=== PATIENT | male | born 1970 | race Caucasian/White ===

== ENCOUNTER 2018-11-22 21:54 | Emergency (ER) | payer OTHER ==
[2018-11-22 22:03] VITALS: BP 136/76; PULSE 65; RESP 18; TEMP 98.1
[2018-11-22] MEDS ORDERED: SULFAMETH-TMP DS STARTER PACK 2 TAB BTL PO STA (23:26)
[2018-11-22] MEDS ORDERED: ACET/COD 300 MG/30 MG STARTER PACK 6 TAB BTL PO STA (23:26)
--- NOTE | 2018-11-22 23:26 | ED ---
General Adult HPI - General Source: patient Mode of arrival: ambulatory Limitations: no limitations <Tamy Christine - Last Filed: 11/23/18 04:04> <Tyshawn Paul - Last Filed: 11/23/18 08:33> - General Chief complaint: ENT Stated complaint: Swelling behind ear Time Seen by Provider: 11/22/18 22:10 - History of Present Illness Initial comments: 48-year-old male patient presents to the emergency department today for evaluation of swelling and pain to the left lateral neck below the ear. Patient states that this started 3-4 days ago. He thought it might be a blocked salivary gland so he did start eating lemon drops and applying warm compresses to the area. Patient states that the area has grown in size and has become more painful so he presented here for further evaluation. He states that he does have a chronically enlarged lymph node on the left side. He denies any drainage or pus or fluid from the area. Denies any ear pain. He denies any fevers or chills with this. States he is able to swallow without difficulty and feels no swelling to his throat or mouth. Patient denies any recent rash, shortness breath, chest pain, abdominal pain, nausea, vomiting, diarrhea, constipation, back pain, numbness, tingling, dizziness, weakness, hematuria, dysuria, urinary urgency, urinary frequency, headache, visual changes , or any other complaints. (Tamy Christine) - Related Data Home Medications Medication Instructions Recorded Confirmed Albuterol Inhaler [Ventolin Hfa 1 - 2 puff INHALATION RT-Q6H PRN 11/22/18 Inhaler] Atorvastatin Calcium [Lipitor] 20 mg PO HS 11/22/18 11/22/18 DULoxetine HCL [Cymbalta] 60 mg PO DAILY 11/22/18 11/22/18 Ibuprofen [Motrin] 600 mg PO Q8HR PRN 11/22/18 11/22/18 L.acidoph,Paracasei, B.lactis 1 cap PO HS 11/22/18 11/22/18 [Probiotic] metFORMIN HCL 1,000 mg PO BID 11/22/18 11/22/18 Previous Rx's Medication Instructions Recorded Sulfamethoxazole/Trimethoprim 1 each PO BID #20 tablet 11/22/18 [Bactrim DS 800-160 mg] Allergies Allergy/AdvReac Type Severity Reaction Status Date / Time No Known Allergies Allergy Unverified 11/22/18 22:29 Review of Systems ROS Other: All systems not noted in ROS Statement are negative. <Tamy Christine - Last Filed: 11/23/18 04:04> ROS Other: All systems not noted in ROS Statement are negative. <RejiTyshawn benton - Last Filed: 11/23/18 08:33> ROS Statement: Those systems with pertinent positive or pertinent negative responses have been documented in the HPI. Past Medical History Past Medical History: Asthma, COPD, Diabetes Mellitus, Hyperlipidemia, Hypertension Additional Past Medical History / Comment(s): MONSTER History of Any Multi-Drug Resistant Organisms: None Reported Additional Past Surgical History / Comment(s): rectal abcess, fissure Past Psychological History: No Psychological Hx Reported Smoking Status: Current every day smoker Past Alcohol Use History: None Reported Past Drug Use History: None Reported <Tamy Christine - Last Filed: 11/23/18 04:04> General Exam Limitations: no limitations General appearance: alert, in no apparent distress, other (This is a well- developed, well-nourished adult male patient in no acute distress. Vital signs upon presentation are temperature 98.1F, pulse 65, respirations 18, blood pressure 136/76, pulse ox 98% on room air.) Eye exam: Present: normal appearance, PERRL, EOMI. Absent: scleral icterus, conjunctival injection, periorbital swelling ENT exam: Present: normal exam, normal oropharynx, mucous membranes moist Respiratory exam: Present: normal lung sounds bilaterally. Absent: respiratory distress, wheezes, rales, rhonchi, stridor Cardiovascular Exam: Present: regular rate, normal rhythm, normal heart sounds. Absent: systolic murmur, diastolic murmur, rubs, gallop, clicks GI/Abdominal exam: Present: soft, normal bowel sounds. Absent: distended, tenderness, guarding, rebound, rigid Neurological exam: Present: alert, oriented X3, CN II-XII intact Psychiatric exam: Present: normal affect, normal mood Skin exam: Present: warm, dry, intact, other (There is area of swelling and erythema noted posterior to the left angle of the mandible. Area measures 4cm x 2cm. No fluctuance. No evidence of drainable abscess. ). Absent: rash <EmmettTamy Wayne - Last Filed: 11/23/18 04:04> Vital Signs 11/22/18 21:56 Temperature 98.1 F Pulse Rate 65 Respiratory 18 Rate Blood Pressure 136/76 O2 Sat by Pulse 98 Oximetry Medical Decision Making <EmmettTamy Wayne - Last Filed: 11/23/18 04:04> <Tyshawn Paul - Last Filed: 11/23/18 08:33> - Medical Decision Making 48-year-old male patient presents to the emergency department today for evaluation of pain and swelling to the left side of the neck just below the ear. Physical examination did reveal a 3 cm x 2 cm area of swelling and erythema just posterior to the left angle of the mandible. No fluctuance or evidence of drainable abscess. Patient is afebrile. This is consistent with an infected sebaceous cyst. Patient did report have a chronically swollen lymph node to the area as well. Given chronic history of this lymph node being swollen we will discharge to follow-up with surgeon for further evaluation of the area and possible drainage. Patient will be started on Bactrim. We did discuss return parameters in detail. He verbalizes understanding and agrees with this plan. (Tamy Christine) I saw this patient in conjunction with the physician esl instructional assistant. I performed independent history and physical exam. Agree with case management. (Tyshawn Paul) Disposition Is patient prescribed a controlled substance at d/c from ED?: No Time of Disposition: 23:26 <Tamy Christine - Last Filed: 11/23/18 04:04> <Tyshawn Paul - Last Filed: 11/23/18 08:33> Clinical Impression: Infected sebaceous cyst Disposition: HOME SELF-CARE Condition: Good Instructions (If sedation given, give patient instructions): Abscess (ED) Additional Instructions: Continue to apply warm compresses over the area. Complete antibiotic prescription in full. Follow up with general surgery for further evaluation of the area. Return to the emergency department immediately for any new, worsening , or concerning symptoms. Prescriptions: Sulfamethoxazole/Trimethoprim [Bactrim DS 800-160 mg] 1 each PO BID #20 tablet Referrals: Mickey Darling MD [STAFF PHYSICIAN] - 1-2 days
== END 2018-11-22 23:40 | disposition home or self-care (01) ==
LOC: EC 21:54
DX: L72.3 Sebaceous cyst (principal); J44.9 Chronic obstructive pulmonary disease, unspecified; E11.9 Type 2 diabetes mellitus without complications; E78.5 Hyperlipidemia, unspecified; I10 Essential (primary) hypertension; F17.200 Nicotine dependence, unspecified, uncomplicated; Z79.899 Other long term (current) drug therapy; Z79.84 Long term (current) use of oral hypoglycemic drugs
CPT/HCPCS: 99283

== ENCOUNTER 2019-01-07 22:26 | Emergency (ER) | payer OTHER ==
[2019-01-07 23:24] LABS: Basophils # (A) 0.1 k/uL (0-0.2); Basophils % (A) 1 %; Eosinophils # (A) 0.3 k/uL (0-0.7); Eosinophils % (A) 3 %; HCT 45.8 % (39.0-53.0); HGB 15.1 gm/dL (13.0-17.5); Lymphocytes % (A) 20 %; MCH 29.3 pg (25.0-35.0); MCV 88.7 fL (80.0-100.0); Mean Platelet Volume 8.5; Monocytes # (A) 0.7 k/uL (0-1.0); Monocytes % (A) 7 %; Neutrophils # (A) 6.8 k/uL (1.3-7.7); Neutrophils % (A) 67 %; Platelet Count 179 k/uL (150-450); RBC 5.16 m/uL (4.30-5.90); RDW 14.4 % (11.5-15.5); WBC 10.1 k/uL (3.8-10.6)
[2019-01-07 23:35] LABS: ALT 63 U/L (21-72); AST 40 U/L (17-59); Albumin 3.8 g/dL (3.5-5.0); Alkaline Phosphatase 97 U/L (38-126); Anion Gap 6 mmol/L; Blood Urea Nitrogen 6 mg/dL (9-20); Calcium 9.4 mg/dL (8.4-10.2); Carbon Dioxide 27 mmol/L (22-30); Chloride 106 mmol/L (98-107); Glucose 158 mg/dL (74-99); Sodium 139 mmol/L (137-145); Total Bilirubin 0.7 mg/dL (0.2-1.3); Total Protein 6.8 g/dL (6.3-8.2)
--- NOTE | 2019-01-08 01:01 | CT ---
EXAM: CT Neck With Intravenous Contrast CLINICAL HISTORY: right facial swelling TECHNIQUE: Axial computed tomography images of the neck with intravenous contrast. CTDI is 16.4 mGy and DLP is 543 mGy-cm. This CT exam was performed using one or more of the following dose reduction techniques: automated exposure control, adjustment of the mA and/or kV according to patient size, and/or use of iterative reconstruction technique. COMPARISON: No relevant prior studies available. FINDINGS: Oropharynx: Unremarkable. Mild prominence of the tonsils without evidence of peritonsillar abscess with surrounding inflammatory changes Hypopharynx: Unremarkable. Larynx: Unremarkable. Normal epiglottis. Parotid gland: 2.9 x 2.7 x 2.5 cm enhancing nodule in the right parotid gland with poorly defined margins low attenuation centrally. There is a infiltrative pattern to the surrounding parotid gland there is additional smaller lesion noted measuring 11 mm inferiorly. There appear to be enlarged intraparotid lymph nodes as well. Inflammatory changes are noted along the superficial investing fascia as well as along the right side of the subcutaneous tissues. There is bilateral shotty cervical adenopathy There is an area of abnormal attenuation adjacent to the left parotid gland with an enlarged intraparotid lymph gland on the left measuring 1.6 cm in size. The findings are nonspecific. The differential diagnosis includes inflammatory process versus neoplasm. Clinical correlation is required Thyroid: Unremarkable. No enlarged or calcified nodules. Bones/joints: No acute fracture. Soft tissues: Unremarkable. Vasculature: No acute findings. Lymph nodes: Bilateral cervical adenopathy with supraclavicular lymph nodes measuring up 1.5 cm on the right Lung apices: Unremarkable as visualized. IMPRESSION: Abnormal mass in the right parotid gland with surrounding smaller lesions intra-parotid lymph nodes. Infiltrative pattern of the gland itself with some thickening of the fascial investing fascia there appears to be some inflammatory changes along the right side of the subcutaneous fat of the face as well. There is a abnormal area of attenuation which involves the subcutaneous fat adjacent to the parotid gland below the external auditory canal on the left. There is an enlarged parotid gland lymph node. The findings are nonspecific. Possibility of infectious or inflammatory process versus neoplasm cannot be adequately differentiated on this study.
--- NOTE | 2019-01-08 01:01 | ED ---
General Adult HPI - General Chief complaint: Skin/Abscess/Foreign Body Stated complaint: Swollen face on RT side Time Seen by Provider: 01/07/19 22:44 Source: patient, RN notes reviewed Mode of arrival: ambulatory Limitations: no limitations - History of Present Illness Initial comments: 48-year-old male presents to the emergency department for right-sided facial swelling 4 days. Patient states he has had pain in the right-sided facial area for about a week and for the past 4 days has had worsening right-sided facial swelling. Patient states he does have a history of a blocked salivary duct but has been using sour candies and has not had relief. Patient does admit to worsening pain after eating. Patient states he thought he had a blocked sa livary gland duct on the left side earlier this year that ended up being a sebaceous cyst. He denies fevers or chills. He denies any tooth pain. He denies any difficulty swallowing.Patient has no other complaints at this time including shortness of breath, chest pain, abdominal pain, nausea or vomiting, headache, or visual changes. - Related Data Home Medications Medication Instructions Recorded Confirmed Albuterol Inhaler [Ventolin Hfa 1 - 2 puff INHALATION RT-Q6H PRN 11/22/18 01/07/19 Inhaler] Atorvastatin Calcium [Lipitor] 20 mg PO HS 11/22/18 01/07/19 DULoxetine HCL [Cymbalta] 60 mg PO DAILY 11/22/18 01/07/19 Ibuprofen [Motrin] 600 mg PO Q8HR PRN 11/22/18 01/07/19 L.acidoph,Paracasei, B.lactis 1 cap PO HS 11/22/18 01/07/19 [Probiotic] metFORMIN HCL 1,000 mg PO BID 11/22/18 01/07/19 Aspirin 650 mg PO BID 01/07/19 01/07/19 Previous Rx's Medication Instructions Recorded Amoxicillin/Potassium Clav 1 tab PO Q12HR #20 tab 01/08/19 [Augmentin 875-125 Tablet] Allergies Allergy/AdvReac Type Severity Reaction Status Date / Time No Known Allergies Allergy Verified 01/07/19 23:01 Review of Systems ROS Statement: Those systems with pertinent positive or pertinent negative responses have been documented in the HPI. ROS Other: All systems not noted in ROS Statement are negative. Past Medical History Past Medical History: Asthma, COPD, Diabetes Mellitus, Hyperlipidemia, Hypertension Additional Past Medical History / Comment(s): MONSTER History of Any Multi-Drug Resistant Organisms: None Reported Additional Past Surgical History / Comment(s): rectal abcess, fissure Past Psychological History: No Psychological Hx Reported Smoking Status: Current every day smoker Past Alcohol Use History: None Reported Past Drug Use History: None Reported General Exam Limitations: no limitations General appearance: alert, in no apparent distress Head exam: Present: atraumatic, normocephalic, normal inspection Eye exam: Present: normal appearance, PERRL, EOMI. Absent: scleral icterus, conjunctival injection, periorbital swelling ENT exam: Present: normal oropharynx, TM's normal bilaterally, other (Patient has a centimeter by 8 cm area of edema noted to the right mandibular angle extending into the neck. This is non-erythematous, not warm to palpation. Does not feel fluctuant.) Neck exam: Present: normal inspection, full ROM, other (Patient does have a mass as described above in the ENT section. This is extending into the right submandibular area). Absent: tenderness, meningismus, lymphadenopathy Respiratory exam: Present: normal lung sounds bilaterally. Absent: respiratory distress, wheezes, rales, rhonchi, stridor Cardiovascular Exam: Present: regular rate, normal rhythm, normal heart sounds. Absent: systolic murmur, diastolic murmur, rubs, gallop, clicks Neurological exam: Present: alert, oriented X3, CN II-XII intact Psychiatric exam: Present: normal affect, normal mood Course Vital Signs 01/07/19 01/08/19 01/08/19 22:34 00:23 02:09 Temperature 99.3 F 99.5 F 98.8 F Pulse Rate 82 90 78 Respiratory 18 20 18 Rate Blood Pressure 143/86 152/71 133/73 O2 Sat by Pulse 94 L 97 97 Oximetry Medical Decision Making - Medical Decision Making CBC CMP unremarkable. Soft tissue neck CT does show an abnormal mass in the right parotid gland with surrounding smaller lesions some inflammatory changes likely. Findings are nonspecific. Possibility of infectious or inflammatory process versus neoplasm. Discussed these findings with patient. There are no areas of fluctuance. Patient was given Unasyn here and Augmentin for outpatient therapy. However did discuss close follow up with ENT due to possibility of neoplasm or worsening swelling. However, neoplasm unlikely as this just occurred in the past week. Patient is agreeable to this plan. PATIENT answered. He was given referral to ENT. He will return here feels worsening symptoms. - Lab Data Result diagrams: 01/07/19 23:11 01/07/19 23:11 Lab Results 01/07/19 01/07/19 Range/Units 23:11 23:11 WBC 10.1 (3.8-10.6) k/uL RBC 5.16 (4.30-5.90) m/uL Hgb 15.1 (13.0-17.5) gm/dL Hct 45.8 (39.0-53.0) % MCV 88.7 (80.0-100.0) fL MCH 29.3 (25.0-35.0) pg MCHC 33.0 (31.0-37.0) g/dL RDW 14.4 (11.5-15.5) % Plt Count 179 (150-450) k/uL Neutrophils % 67 % Lymphocytes % 20 % Monocytes % 7 % Eosinophils % 3 % Basophils % 1 % Neutrophils # 6.8 (1.3-7.7) k/uL Lymphocytes # 2.0 (1.0-4.8) k/uL Monocytes # 0.7 (0-1.0) k/uL Eosinophils # 0.3 (0-0.7) k/uL Basophils # 0.1 (0-0.2) k/uL Sodium 139 (137-145) mmol/L Potassium 4.0 (3.5-5.1) mmol/L Chloride 106 (98-107) mmol/L Carbon Dioxide 27 (22-30) mmol/L Anion Gap 6 mmol/L BUN 6 L (9-20) mg/dL Creatinine 0.64 L (0.66-1.25) mg/dL Est GFR (CKD-EPI)AfAm >90 (>60 ml/min/1.73 sqM) Est GFR (CKD-EPI)NonAf >90 (>60 ml/min/1.73 sqM) Glucose 158 H (74-99) mg/dL Calcium 9.4 (8.4-10.2) mg/dL Total Bilirubin 0.7 (0.2-1.3) mg/dL AST 40 (17-59) U/L ALT 63 (21-72) U/L Alkaline Phosphatase 97 (38-126) U/L Total Protein 6.8 (6.3-8.2) g/dL Albumin 3.8 (3.5-5.0) g/dL Disposition Clinical Impression: Parotitis, Facial swelling Disposition: HOME SELF-CARE Condition: Good Instructions (If sedation given, give patient instructions): Sialoadenitis (ED) Additional Instructions: Please take antibiotic as directed. Follow up with ENT in 1-2 days. If you have any worsening symptoms please return to the emergency department. Prescriptions: Amoxicillin/Potassium Clav [Augmentin 875-125 Tablet] 1 tab PO Q12HR #20 tab Is patient prescribed a controlled substance at d/c from ED?: No Referrals: Nonstaff,Physician [Primary Care Provider] - 1-2 days Rishabh Alejo DO [Doctor of Osteopathic Medicine] - 1-2 days Time of Disposition: 01:18
[2019-01-08] MEDS ORDERED: KETOROLAC 30 MG/ML 1 ML VIAL IVP STA (01:16)
[2019-01-08] MEDS ORDERED: AMPICILLIN-SULBACTAM 3 GM in SODIUM CHLORIDE 0.9% 100 ML IVPB STA (01:19)
[2019-01-08] MEDS ORDERED: AMOXIC-POT CLAV 875MG STARTER 2 EACH TABLET PO STA (01:21)
[2019-01-08] MEDS ORDERED: ACET/COD 300 MG/30 MG STARTER PACK 6 TAB BTL PO STA (01:22)
[2019-01-08 02:10] VITALS: BP 133/73; PULSE 78; RESP 18; TEMP 98.8
== END 2019-01-08 02:19 | disposition home or self-care (01) ==
LOC: EC 22:26
DX: K11.20 Sialoadenitis, unspecified (principal); J44.9 Chronic obstructive pulmonary disease, unspecified; E78.5 Hyperlipidemia, unspecified; I10 Essential (primary) hypertension; F17.200 Nicotine dependence, unspecified, uncomplicated; Z79.82 Long term (current) use of aspirin; Z79.84 Long term (current) use of oral hypoglycemic drugs; Z79.899 Other long term (current) drug therapy
CPT/HCPCS: 36415; 80053; 85025; 87040; 70491; 99284; 96365; 96375; J1885; J0295; Q9967

== ENCOUNTER → 2019-01-28 | Outpatient (CLI) | payer OTHER ==
[2019-01-28 12:21] LABS: Basophils # (A) 0.1 k/uL (0-0.2); Basophils % (A) 1 %; Eosinophils # (A) 0.3 k/uL (0-0.7); Eosinophils % (A) 4 %; HGB 14.6 gm/dL (13.0-17.5); Lymphocytes # (A) 2.2 k/uL (1.0-4.8); Lymphocytes % (A) 30 %; MCH 29.3 pg (25.0-35.0); MCHC 33.9 g/dL (31.0-37.0); MCV 86.4 fL (80.0-100.0); Mean Platelet Volume 7.2; Monocytes # (A) 0.6 k/uL (0-1.0); Monocytes % (A) 7 %; Neutrophils # (A) 4.2 k/uL (1.3-7.7); Neutrophils % (A) 56 %; Platelet Count 295 k/uL (150-450); RBC 4.97 m/uL (4.30-5.90); RDW 14.6 % (11.5-15.5); WBC 7.4 k/uL (3.8-10.6)
[2019-01-28 16:48] LABS: Albumin 4.3 g/dL (3.80-4.90); Albumin/Globulin Ratio 1.79 (1.60-3.17); Anion Gap 5.5 mmol/L (4.00-12.00); Calcium 9.7 mg/dL (8.7-10.3); Carbon Dioxide 26.5 mmol/L (21.6-31.8); Globulin 2.4 g/dL (1.6-3.3); LDL Cholesterol,Calculated 78.6 mg/dL (0.0-131.0); Potassium 4.5 mmol/L (3.5-5.5); Total Bilirubin 0.3 mg/dL (0.3-1.2); Total Protein 6.7 g/dL (6.2-8.2); VLDL Calculation 24.4 mg/dL (5.00-40.00)
== END | disposition home or self-care (01) ==
LOC: LABWHC1 11:09
PROVIDERS: ATTEND Internal Medicine
DX: Z00.00 Encounter for general adult medical examination without abnormal findings (principal); E11.9 Type 2 diabetes mellitus without complications; E78.00 Pure hypercholesterolemia, unspecified
CPT/HCPCS: 36415; 80053; 80061; 82043; 82570; 85025

== ENCOUNTER 2019-01-31 19:36 | Emergency (ER) | payer OTHER ==
[2019-01-31 19:47] VITALS: BP 137/79; PULSE 99; RESP 20; TEMP 98.5
--- NOTE | 2019-01-31 21:41 | ED ---
Recheck HPI - General Source: patient Mode of arrival: ambulatory Limitations: no limitations <Tamy Christine - Last Filed: 02/01/19 13:09> <Beronica Ramirez - Last Filed: 02/01/19 21:55> - General Chief Complaint: Recheck/Abnormal Lab/Rx Stated Complaint: PICC line clogged Time Seen by Provider: 01/31/19 21:35 - History of Present Illness Initial Comments: 48-year-old male patient presents to the emergency department today for evaluation of clogged PICC line. Patient states he did have a CAT scan earlier in the day today, states that the PICC line was not flushed after he received contrast. States when he got home he was unable to flush the catheter. Patient denies any pain or discomfort. Denies any other symptoms. He is currently receiving IV antibiotics for a gland infection. Patient denies any recent rash, fever, chills, shortness breath, chest pain, abdominal pain, nausea, vomiting, diarrhea, constipation, back pain, numbness, tingling, dizziness, weakness, hematuria, dysuria, urinary urgency, urinary frequency, headache, visual changes, or any other complaints. (Tamy Christine) - Related Data Home Medications Medication Instructions Recorded Confirmed Albuterol Inhaler [Ventolin Hfa 1 - 2 puff INHALATION RT-Q6H PRN 11/22/18 01/31/19 Inhaler] Atorvastatin Calcium [Lipitor] 20 mg PO HS 11/22/18 01/31/19 DULoxetine HCL [Cymbalta] 60 mg PO DAILY 11/22/18 01/31/19 L.acidoph,Paracasei, B.lactis 1 cap PO HS 11/22/18 01/31/19 [Probiotic] metFORMIN HCL 1,000 mg PO BID 11/22/18 01/31/19 Amoxicillin/Potassium Clav 1 tab PO TID 01/31/19 01/31/19 [Augmentin 875-125 Tablet] Eraxis(Unknown) 400 ml IV CONTINUOUS 01/31/19 01/31/19 Allergies Allergy/AdvReac Type Severity Reaction Status Date / Time No Known Allergies Allergy Verified 01/31/19 21:44 Review of Systems ROS Other: All systems not noted in ROS Statement are negative. <Tamy Christine - Last Filed: 02/01/19 13:09> ROS Other: All systems not noted in ROS Statement are negative. <Beronica Ramirez P - Last Filed: 02/01/19 21:55> ROS Statement: Those systems with pertinent positive or pertinent negative responses have been documented in the HPI. Past Medical History Past Medical History: Asthma, COPD, Diabetes Mellitus, Hyperlipidemia, Hypertension Additional Past Medical History / Comment(s): MONSTER, gland infection History of Any Multi-Drug Resistant Organisms: None Reported Additional Past Surgical History / Comment(s): rectal abcess, fissure Past Psychological History: No Psychological Hx Reported Smoking Status: Current every day smoker Past Alcohol Use History: None Reported Past Drug Use History: None Reported <Tamy Christine M - Last Filed: 02/01/19 13:09> General Exam Limitations: no limitations General appearance: alert, in no apparent distress, other (This is a well- developed, well-nourished adult male patient in no acute distress. Vital signs upon presentation are temperature 98.5F, pulse 99, respirations 20, blood pressure 137/79, pulse ox 97% on room air.) Eye exam: Present: PERRL ENT exam: Present: mucous membranes moist Respiratory exam: Present: normal lung sounds bilaterally. Absent: respiratory distress, wheezes, rales, rhonchi, stridor Cardiovascular Exam: Present: regular rate, normal rhythm, normal heart sounds. Absent: systolic murmur, diastolic murmur, rubs, gallop, clicks Extremities exam: Present: normal inspection, full ROM, normal capillary refill, other (PICC line present to left upper arm.). Absent: tenderness, pedal edema, joint swelling, calf tenderness Neurological exam: Present: alert, oriented X3, CN II-XII intact Psychiatric exam: Present: normal affect, normal mood Skin exam: Present: warm, dry, intact, normal color. Absent: rash <Tamy Christine M - Last Filed: 02/01/19 13:09> Course Vital Signs 01/31/19 19:43 Temperature 98.5 F Pulse Rate 99 Respiratory 20 Rate Blood Pressure 137/79 O2 Sat by Pulse 97 Oximetry Medical Decision Making <Tamy Christine M - Last Filed: 02/01/19 13:09> <Beronica Ramirez P - Last Filed: 02/01/19 21:55> - Medical Decision Making 48-year-old male patient presents to the emergency department today for evaluation of clogged PICC line. Patient states that a computed tomography scan earlier today with IV contrast. States that his PICC line was not flushed after the test. States when he got home it was clogged. Physical examination is unremarkable. The PICC line is present to the left upper arm. Skin surrounding PICC line insertion site is normal. Nursing staff was in the room was able to flush the catheter using saline. PICC line seems to be improper working order at this time. Patient be discharged home to follow-up with his primary care physician as needed. Return parameters discussed in detail. He verbalizes understanding and agrees this plan. (Tamy Christine) I was available for consultation in the emergency department. The history and physical exam were done by the Midlevel Provider. Medical decision making was done by the Midlevel Provider. The Midlevel Provider did not contact me for this patient's care. I was not directly involved in this patient's care. (Beronica Ramirez) Disposition Is patient prescribed a controlled substance at d/c from ED?: No Time of Disposition: 21:41 <Tamy Christine - Last Filed: 02/01/19 13:09> <Beronica Ramirez - Last Filed: 02/01/19 21:55> Clinical Impression: Occluded PICC line Disposition: HOME SELF-CARE Condition: Good Instructions (If sedation given, give patient instructions): Peripherally Inserted Central Catheters and Midline Catheters (DC) Additional Instructions: Follow up with your physician as needed. Return to your emergency department for recheck in 1-2 days. Return to the emergency department for any new, worsening, or concerning symptoms. Referrals: Dajuan Hernandez MD [Primary Care Provider] - 1-2 days
== END 2019-01-31 21:55 | disposition home or self-care (01) ==
LOC: EC 19:36
DX: T82.898A Other specified complication of vascular prosthetic devices, implants and grafts, initial encounter (principal); J44.9 Chronic obstructive pulmonary disease, unspecified; E11.9 Type 2 diabetes mellitus without complications; E78.5 Hyperlipidemia, unspecified; G47.33 Obstructive sleep apnea (adult) (pediatric); F17.200 Nicotine dependence, unspecified, uncomplicated; Z79.84 Long term (current) use of oral hypoglycemic drugs; Z79.899 Other long term (current) drug therapy
CPT/HCPCS: 99282

== ENCOUNTER → 2019-11-28 | Outpatient (CLI) | payer OTHER ==
--- NOTE | 2019-11-28 18:35 | CONS ---
CONSULTATION DATE OF SERVICE: 11/28/2019 This patient is a 49-year-old gentleman who has [facility] for obstructive sleep apnea-hypopnea syndrome and significant excessive daytime sleepiness. HISTORY OF PRESENT ILLNESS/SLEEP-WAKE EVALUATION: The patient was diagnosed with obstructive sleep apnea in 2007. Last titration was done in 2013. The patient is on treatment with CPAP, but while using CPAP he continues to snore and continues to wake up from sleep. He has episodes of stopped breathing while using his CPAP equipment, although the level of CPAP pressure is quite high; according to the patient, it is 20 cm of water. Patient wakes up with gasping for air, dry mouth and restless legs. His sleep schedule is from 11 p.m. until 6 or 7 a.m. He does not have problems with falling asleep. No TV in bedroom. He prefers to sleep on the side position. No history of hypnagogic hallucinations or sleep paralysis. The patient has a significant amount of movements during the night, all night. Sometimes his covers are off of him. In the morning, the patient wakes up tired, has difficulties paying attention, falling asleep during the day, has problems with memory, concentration, irritability, depression and anxiety. [place] Sleepiness Scale is in a very high range at 17. He is taking naps 1 or 2 times a day, especially in mid afternoon. Sometimes he dreams during naps. He drinks up to 16 ounces of caffeinated beverages during the day. Previously patient was on treatment at night with additional oxygen supplement of about 2.5 L/minute, but about 4 years ago he was told that he does not need any additional oxygen supplement, and since that time he has only been using CPAP. PAST MEDICAL HISTORY: Positive for diabetes mellitus, peripheral neuropathy, hyperlipidemia, nasal fracture in childhood, nasal septum deviation, COPD, history of asthma, Chantix for smoking cessation. MEDICATIONS: Metformin, Cymbalta, atorvastatin, Januvia, Jardiance, Symbicort, Albuterol. PAST SURGICAL HISTORY: Surgery for infected parotid gland in November of 2018 on the right side. SOCIAL HISTORY: Positive for smoking 2 packs a day for 30 years. The patient continues to smoke. Alcohol consumption none. FAMILY HISTORY: Fibromyalgia, arthritis, asthma, sleep apnea, diabetes, mental illness, restless legs. REVIEW OF SYSTEMS: Multiple awakenings from sleep. Significant amount of movements with legs during the night. Significant sleepiness during the day with episodes of dreaming during naps. PHYSICAL EXAMINATION: GENERAL: A pleasant gentleman without distress. VITAL SIGNS: BP 137/70, HR 81, RR 16, height 5 feet 7-3/4 inches, weight 315 pounds, body mass index 48.3, temperature 98.5, oxygen saturation at room air 93%. HEENT: PERRLA, EOMI. Evaluation of oropharynx showed tongue protrudes midline. Extremely low position of soft palate. Mallampati IV. Asymmetric nose. Restriction of nasal breathing. NECK: Supple. No JVD. Thyroid is not palpable. Wide neck: 20 inches in circumference. LUNGS: Clear to percussion and to auscultation. Good air exchange. No wheezing or rhonchi. HEART: S1, S2 regular. No murmurs, gallops or rubs. ABDOMEN: Obese. EXTREMITIES: One plus bilateral ankle edema. [employer]: Awake, alert, and oriented X3. Cranial nerves 2 to 7 intact. There is no fasciculation or atrophy. noted. No focal deficits observed. IMPRESSION: 1. History of obstructive sleep apnea. Patient was on treatment with CPAP but at a very high pressure of 20 cm of water. He continued to have snoring and awakenings from sleep. He has an extremely low position of soft palate, wide neck, significant excessive daytime sleepiness; obstructive sleep apnea-hypopnea syndrome. 2. Obesity; body mass index 48.3. Possibly obesity hypoventilation syndrome. 3. History of smoking for 60 pack/years. Occasional cough in the morning. COPD. 4. Constant movements of the legs during evaluation in the office. Significant amount of movements of legs during sleep. Restless leg syndrome and periodic limb movements. 5. Diabetes mellitus with peripheral neuropathy. 6. Hyperlipidemia. 7. Nasal septum deviation with restriction of nasal breathing. PLAN: 1. Polysomnography for evaluation of patient's breathing during sleep and to check for restless legs and periodic limb movement. Patient's weight has changed up and down. 2. Repeat CPAP titration. The patient may need treatment with BiPAP. Also we will check for necessity for additional oxygen; previously patient was on treatment with additional oxygen. 3. Significant excessive daytime sleepiness while patient is on treatment with CPAP; could be related to periodic limb movements and also could be related to other differential diagnostic possibilities, including hypersomnia and narcolepsy. Sometimes the patient sees dreams during naps. 4. Losing weight. 5. Smoking cessation program. Patient will continue to use Chantix. 6. Please check iron profile, including ferritin level. Low level of iron may increase the risk for periodic limb movements and restless legs. Diabetes also may increase risk for restless legs. 7. Precautions related to driving. No driving if feeling any sleepiness. 8. After the patient's respiration is under control, if he continues to have sleepiness he could be a candidate for multiple sleep latency test for objective evaluation of his sleepiness. In that case, he could be a candidate for additional pharmacotherapy for prevention of excessive daytime sleepiness during the day. Thank you very much for referring this patient for consultation. Sincerely, Sylvester Bynum MD, PhD, FAASM Diplomat of [place] [employer] [place] [employer] Operations Manager of [facility] [place] MMODL / NIRMAL: [id number] /
== END | disposition home or self-care (01) ==
LOC: SLEEP 11:43
PROVIDERS: ATTEND Internal Medicine
DX: G47.33 Obstructive sleep apnea (adult) (pediatric) (principal); E66.9 Obesity, unspecified; J44.9 Chronic obstructive pulmonary disease, unspecified; G25.81 Restless legs syndrome; E11.42 Type 2 diabetes mellitus with diabetic polyneuropathy; E78.5 Hyperlipidemia, unspecified; J34.2 Deviated nasal septum; F17.200 Nicotine dependence, unspecified, uncomplicated; Z68.42 Body mass index [BMI] 45.0-49.9, adult; Z83.6 Family history of other diseases of the respiratory system; Z79.84 Long term (current) use of oral hypoglycemic drugs
CPT/HCPCS: 99211

== ENCOUNTER 2019-12-17 20:31 | Emergency (ER) | payer OTHER ==
[2019-12-17 20:39] VITALS: RESP 18
[2019-12-17] MEDS ORDERED: KETOROLAC 30 MG/ML 1 ML VIAL IVP STA (21:05)
[2019-12-17] MEDS ORDERED: ONDANSETRON 4 MG/2 ML VIAL IVP STA (21:05)
[2019-12-17] MEDS ORDERED: SODIUM CHLORIDE 0.9% 1,000 ML IV STA ×2 (21:05)
--- NOTE | 2019-12-17 21:32 | ED ---
Abdominal Pain HPI - General Chief Complaint: Abdominal Pain Stated Complaint: Poss kidney stone Source: patient, RN notes reviewed, old records reviewed Mode of arrival: ambulatory Limitations: no limitations - History of Present Illness Initial Comments: Patient is a 49-year-old male who presents emergency department today for evaluation with chief complaint of lower right groin pain onset a few hours prior to arrival. Patient reports that he initially thought he was going to have a having a kidney stone because the symptoms were worsening with and felt increased urgency to urinate. Patient reports he had 1 terrible episode of lower abdominal and pelvic pain that is not resolved. Also reports he is having some upper GI upset today and complained of some episodes of diarrhea. Patient reports that Patient reports no recent fevers or chills. He reports he has been diagnosed with diverticulosis and has had history of kidney stones before. also reports that upon arriving here his pain is now diminished and he states he is feeling much better. Patient states that also question if it was worse with movement. - Related Data Home Medications Medication Instructions Recorded Confirmed Albuterol Inhaler [Ventolin Hfa 1 - 2 puff INHALATION RT-Q6H PRN 11/22/18 01/31/19 Inhaler] Atorvastatin Calcium [Lipitor] 20 mg PO HS 11/22/18 01/31/19 DULoxetine HCL [Cymbalta] 60 mg PO DAILY 11/22/18 01/31/19 L.acidoph,Paracasei, B.lactis 1 cap PO HS 11/22/18 01/31/19 [Probiotic] metFORMIN HCL 1,000 mg PO BID 11/22/18 01/31/19 Amoxicillin/Potassium Clav 1 tab PO TID 01/31/19 01/31/19 [Augmentin 875-125 Tablet] Eraxis(Unknown) 400 ml IV CONTINUOUS 01/31/19 01/31/19 Allergies Allergy/AdvReac Type Severity Reaction Status Date / Time No Known Allergies Allergy Verified 12/17/19 22:13 Review of Systems ROS Statement: Those systems with pertinent positive or pertinent negative responses have been documented in the HPI. ROS Other: All systems not noted in ROS Statement are negative. Past Medical History Past Medical History: Asthma, COPD, Diabetes Mellitus, Hyperlipidemia, Hypertension Additional Past Medical History / Comment(s): MONSTER, gland infection History of Any Multi-Drug Resistant Organisms: None Reported Past Surgical History: No Surgical Hx Reported Additional Past Surgical History / Comment(s): rectal abcess, fissure Past Psychological History: Anxiety, Depression Smoking Status: Current every day smoker Past Alcohol Use History: None Reported Past Drug Use History: None Reported General Exam - General Exam Comments Initial Comments: 49-year-old male. Alert and oriented. Patient appears in no acute distress. Limitations: no limitations General appearance: alert, in no apparent distress Head exam: Present: atraumatic, normocephalic, normal inspection Eye exam: Present: normal appearance, PERRL, EOMI. Absent: scleral icterus, conjunctival injection, periorbital swelling ENT exam: Present: normal exam, mucous membranes moist Neck exam: Present: normal inspection. Absent: tenderness, meningismus, lymphadenopathy Respiratory exam: Present: normal lung sounds bilaterally. Absent: respiratory distress, wheezes, rales, rhonchi, stridor Cardiovascular Exam: Present: regular rate, normal rhythm, normal heart sounds. Absent: systolic murmur, diastolic murmur, rubs, gallop, clicks GI/Abdominal exam: Present: soft, normal bowel sounds, other (Patient is protuberant abdomen. No tenderness. No bulges or masses. No skin changes.). Absent: distended, tenderness, guarding, rebound, rigid Extremities exam: Present: normal inspection, full ROM, normal capillary refill. Absent: tenderness, pedal edema, joint swelling, calf tenderness Back exam: Present: normal inspection Neurological exam: Present: alert, oriented X3, CN II-XII intact Course Vital Signs 12/17/19 20:34 Temperature 98.0 F Pulse Rate 83 Respiratory 18 Rate Blood Pressure 146/90 O2 Sat by Pulse 97 Oximetry Medical Decision Making - Medical Decision Making This Patient is a pleasant 49-year-old male who presents with his arms today with an episode of right-sided groin pain and frequent urgency to urinate today, Patient believes he His passing a kidney stone. He arrives here and states that his pain is much improved. Patient at this time states the pain is improved and he has no tenderness on exam. Patient's labs were reviewed including UA. No significant changes were noted. No sign of hematuria. I discussed the Patient were to have persistent pain due to some further imaging. On reevaluation after Toradol and Zofran he can states that he again has no further pain. Vital signs are stable no fevers. He states that in for further for further computed tomography scan at this time and follow-up with his doctor. Discussed that this is appropriate and if he would have worsening pain or symptoms he cannot return to the ER for reevaluation. Patient is agreeable to treatment plan will comply. - Lab Data Result diagrams: 12/17/19 21:28 12/17/19 21:28 Lab Results 12/17/19 12/17/19 12/17/19 Range/Units 21:28 21: 21: WBC 10.7 H (3.8-10.6) k/uL RBC 5.25 (4.30-5.90) m/uL Hgb 15.5 (13.0-17.5) gm/dL Hct 46.9 (39.0-53.0) % MCV 89.2 (80.0-100.0) fL MCH 29.6 (25.0-35.0) pg MCHC 33.1 (31.0-37.0) g/dL RDW 13.0 (11.5-15.5) % Plt Count 189 (150-450) k/uL Neutrophils % 59 % Lymphocytes % 28 % Monocytes % 7 % Eosinophils % 3 % Basophils % 1 % Neutrophils # 6.4 (1.3-7.7) k/uL Lymphocytes # 2.9 (1.0-4.8) k/uL Monocytes # 0.8 (0-1.0) k/uL Eosinophils # 0.3 (0-0.7) k/uL Basophils # 0.1 (0-0.2) k/uL PT 10.3 (9.0-12.0) sec INR 1.0 (<1.2) APTT 25.0 (22.0-30.0) sec Sodium 137 (137-145) mmol/L Potassium 4.2 (3.5-5.1) mmol/L Chloride 104 (98-107) mmol/L Carbon Dioxide 24 (22-30) mmol/L Anion Gap 9 mmol/L BUN 8 L (9-20) mg/dL Creatinine 0.77 (0.66-1.25) mg/dL Est GFR (CKD-EPI)AfAm >90 (>60 ml/min/1.73 sqM) Est GFR (CKD-EPI)NonAf >90 (>60 ml/min/1.73 sqM) Glucose 106 H (74-99) mg/dL Calcium 9.5 (8.4-10.2) mg/dL Total Bilirubin 0.4 (0.2-1.3) mg/dL AST 45 (17-59) U/L ALT 52 H (4-49) U/L Alkaline Phosphatase 91 (38-126) U/L Total Protein 7.4 (6.3-8.2) g/dL Albumin 4.5 (3.5-5.0) g/dL Amylase 49 (30-110) U/L Lipase 192 (23-300) U/L Urine Color Urine Appearance (Clear) Urine pH (5.0-8.0) Ur Specific [place] (1.001-1.035) Urine Protein (Negative) Urine Glucose (UA) (Negative) Urine Ketones (Negative) Urine Blood (Negative) Urine Nitrite (Negative) Urine Bilirubin (Negative) Urine Urobilinogen (<2.0) mg/dL Ur Leukocyte Esterase (Negative) 12/17/19 Range/Units 21:28 WBC (3.8-10.6) k/uL RBC (4.30-5.90) m/uL Hgb (13.0-17.5) gm/dL Hct (39.0-53.0) % MCV (80.0-100.0) fL MCH (25.0-35.0) pg MCHC (31.0-37.0) g/dL RDW (11.5-15.5) % Plt Count (150-450) k/uL Neutrophils % % Lymphocytes % % Monocytes % % Eosinophils % % Basophils % % Neutrophils # (1.3-7.7) k/uL Lymphocytes # (1.0-4.8) k/uL Monocytes # (0-1.0) k/uL Eosinophils # (0-0.7) k/uL Basophils # (0-0.2) k/uL PT (9.0-12.0) sec INR (<1.2) APTT (22.0-30.0) sec Sodium (137-145) mmol/L Potassium (3.5-5.1) mmol/L Chloride (98-107) mmol/L Carbon Dioxide (22-30) mmol/L Anion Gap mmol/L BUN (9-20) mg/dL Creatinine (0.66-1.25) mg/dL Est GFR (CKD-EPI)AfAm (>60 ml/min/1.73 sqM) Est GFR (CKD-EPI)NonAf (>60 ml/min/1.73 sqM) Glucose (74-99) mg/dL Calcium (8.4-10.2) mg/dL Total Bilirubin (0.2-1.3) mg/dL AST (17-59) U/L ALT (4-49) U/L Alkaline Phosphatase (38-126) U/L Total Protein (6.3-8.2) g/dL Albumin (3.5-5.0) g/dL Amylase (30-110) U/L Lipase (23-300) U/L Urine Color Yellow Urine Appearance Clear (Clear) Urine pH 7.0 (5.0-8.0) Ur Specific [place] 1.021 (1.001-1.035) Urine Protein Negative (Negative) Urine Glucose (UA) 4+ H (Negative) Urine Ketones Negative (Negative) Urine Blood Negative (Negative) Urine Nitrite Negative (Negative) Urine Bilirubin Negative (Negative) Urine Urobilinogen 2.0 (<2.0) mg/dL Ur Leukocyte Esterase Negative (Negative) - Radiology Data Radiology results: report reviewed X-ray shows no acute abdomen. Possible calcified gallstones. Disposition Clinical Impression: Right groin pain, Abdominal pain Disposition: HOME SELF-CARE Condition: Good Instructions (If sedation given, give patient instructions): Abdominal Pain (ED) Additional Instructions: Patient advised of a clear liquid diet for the next 24-48 hours. Recommend following up with your primary care physician. Return to the emergency department if any alarming signs or symptoms occur. Is patient prescribed a controlled substance at d/c from ED?: No Referrals: Dajuan Hernandez MD [Primary Care Provider] - 1-2 days Time of Disposition: 22:17
[2019-12-17 21:46] LABS: Appearance,Urine Clear (Clear); Basophils # (A) 0.1 k/uL (0-0.2); Basophils % (A) 1 %; Bilirubin,Urine Negative (Negative); Blood,Urine Negative (Negative); Color,Urine Yellow; Eosinophils # (A) 0.3 k/uL (0-0.7); Eosinophils % (A) 3 %; Glucose,Urine (UA) 4+ (Negative); HCT 46.9 % (39.0-53.0); HGB 15.5 gm/dL (13.0-17.5); Ketones,Urine Negative (Negative); Leukocyte Esterase,Urine Negative (Negative); Lymphocytes # (A) 2.9 k/uL (1.0-4.8); Lymphocytes % (A) 28 %; MCH 29.6 pg (25.0-35.0); MCHC 33.1 g/dL (31.0-37.0); MCV 89.2 fL (80.0-100.0); Mean Platelet Volume 8.1; Monocytes # (A) 0.8 k/uL (0-1.0); Monocytes % (A) 7 %; Neutrophils # (A) 6.4 k/uL (1.3-7.7); Neutrophils % (A) 59 %; Nitrite,Urine Negative (Negative); Platelet Count 189 k/uL (150-450); Protein,Urine Negative (Negative); RBC 5.25 m/uL (4.30-5.90); Specific Gravity,Urine 1.021 (1.001-1.035); WBC 10.7 k/uL (3.8-10.6)
[2019-12-17 21:54] LABS: Prothrombin Time 10.3 sec (9.0-12.0)
[2019-12-17 21:55] LABS: ALT 52 U/L (4-49); AST 45 U/L (17-59); African American GFR (CKD) >90 (>60 ml/min/1.73 sqM); Albumin 4.5 g/dL (3.5-5.0); Alkaline Phosphatase 91 U/L (38-126); Amylase 49 U/L (30-110); Anion Gap 9 mmol/L; Blood Urea Nitrogen 8 mg/dL (9-20); Calcium 9.5 mg/dL (8.4-10.2); Carbon Dioxide 24 mmol/L (22-30); Chloride 104 mmol/L (98-107); Glucose 106 mg/dL (74-99); Non-African American GFR(CKD) >90 (>60 ml/min/1.73 sqM); Potassium 4.2 mmol/L (3.5-5.1); Sodium 137 mmol/L (137-145); Total Bilirubin 0.4 mg/dL (0.2-1.3); Total Protein 7.4 g/dL (6.3-8.2)
--- NOTE | 2019-12-17 22:02 | XR ---
EXAMINATION TYPE: XR KUB DATE OF EXAM: 12/17/2019 COMPARISON: NONE HISTORY: Abnormal pain TECHNIQUE: 2 views upright FINDINGS: There is no sign of intestinal obstruction or pneumoperitoneum. Fecal pattern is normal. Th ere is no evidence of a mass. Lung bases are clear. There are no definite calcifications over the kid neys. There is density over the right upper quadrant that could relate to calcified gallstones. IMPRESSION: Nonacute abdomen. Possible calcified gallstones.
[2019-12-17 22:46] VITALS: BP 128/74; PULSE 94; TEMP 98
== END 2019-12-17 22:45 | disposition home or self-care (01) ==
LOC: EC 20:31
DX: R10.31 Right lower quadrant pain (principal); R10.2 Pelvic and perineal pain; R19.7 Diarrhea, unspecified; R39.15 Urgency of urination; J44.9 Chronic obstructive pulmonary disease, unspecified; E11.9 Type 2 diabetes mellitus without complications; E78.5 Hyperlipidemia, unspecified; F41.9 Anxiety disorder, unspecified; F32.9 Major depressive disorder, single episode, unspecified; F17.200 Nicotine dependence, unspecified, uncomplicated; Z87.19 Personal history of other diseases of the digestive system; Z87.442 Personal history of urinary calculi; Z79.84 Long term (current) use of oral hypoglycemic drugs; Z79.899 Other long term (current) drug therapy
CPT/HCPCS: 99284; 96374; 96375; 96361; 36415; 80053; 82150; 83690; 85025; 85610; 85730; 81003; 74018; J2405; J1885

== ENCOUNTER 2020-03-19 12:50 | Emergency (ER) | payer OTHER ==
[2020-03-19 13:09] VITALS: TEMP 98.2
[2020-03-19] MEDS ORDERED: KETOROLAC 30 MG/ML 1 ML VIAL IVP STA (13:25)
[2020-03-19] MEDS ORDERED: SODIUM CHLORIDE 0.9% 1,000 ML IV STA (13:25)
[2020-03-19] MEDS ORDERED: ONDANSETRON 4 MG/2 ML VIAL IVP STA (13:25)
--- NOTE | 2020-03-19 13:30 | ED ---
Abdominal Pain HPI - General Chief Complaint: Abdominal Pain Stated Complaint: Kidney stone Time Seen by Provider: 03/19/20 13:13 Source: patient, RN notes reviewed Mode of arrival: ambulatory Limitations: no limitations - History of Present Illness Initial Comments: This a 49-year-old male presents emergency department to complaint of right sided abdominal pain. Patient states that pain has been present for last day or so. Patient states while at unbearable. He does admit to nausea no vomiting diarrhea constipation. He states his urine has been very dark, states that there is almost some sediment in it. Patient denies any fevers or chills. He's had no prior abdominal surgeries. He does admit that he's had a history kidney stones this is does not feel similar. He states the pain is more localized. Patient states she's been dealing with this pain on and off since November but is much more intense. - Related Data Home Medications Medication Instructions Recorded Confirmed Atorvastatin Calcium [Lipitor] 20 mg PO Q48H 11/22/18 12/17/19 DULoxetine HCL [Cymbalta] 60 mg PO HS 11/22/18 12/17/19 metFORMIN HCL 1,000 mg PO BID 11/22/18 12/17/19 Atorvastatin Calcium [Lipitor] 40 mg PO Q48H 12/17/19 12/17/19 Budesonide/Formoterol Fumarate 2 puff INHALATION RT-BID 12/17/19 12/17/19 [Symbicort 160-4.5 Mcg Inhaler] Empagliflozin [Jardiance] 10 mg PO DAILY 12/17/19 12/17/19 sitaGLIPtin [Januvia] 100 mg PO DAILY 12/17/19 12/17/19 Previous Rx's Medication Instructions Recorded Ketorolac [Toradol] 10 mg PO Q8HR #15 tab 03/19/20 Ondansetron Odt [Zofran Odt] 4 mg PO Q8HR PRN #10 tab 03/19/20 Tamsulosin [Flomax] 0.4 mg PO DAILY #7 cap 03/19/20 Allergies Allergy/AdvReac Type Severity Reaction Status Date / Time No Known Allergies Allergy Verified 03/19/20 13:09 Review of Systems ROS Statement: Those systems with pertinent positive or pertinent negative responses have been documented in the HPI. ROS Other: All systems not noted in ROS Statement are negative. Past Medical History Past Medical History: Asthma, COPD, Diabetes Mellitus, Hyperlipidemia, Hypertension Additional Past Medical History / Comment(s): MONSTER, gland infection History of Any Multi-Drug Resistant Organisms: None Reported Past Surgical History: No Surgical Hx Reported Additional Past Surgical History / Comment(s): rectal abcess, fissure Past Psychological History: Anxiety, Depression Smoking Status: Current every day smoker Past Alcohol Use History: None Reported Past Drug Use History: None Reported General Exam Limitations: no limitations General appearance: alert, in no apparent distress Head exam: Present: atraumatic, normocephalic, normal inspection Eye exam: Present: normal appearance, PERRL, EOMI. Absent: scleral icterus, conjunctival injection, periorbital swelling ENT exam: Present: normal exam, normal oropharynx, mucous membranes moist, TM's normal bilaterally Neck exam: Present: normal inspection, full ROM. Absent: tenderness, meningismus, lymphadenopathy Respiratory exam: Present: normal lung sounds bilaterally. Absent: respiratory distress, wheezes, rales, rhonchi, stridor Cardiovascular Exam: Present: regular rate, normal rhythm, normal heart sounds. Absent: systolic murmur, diastolic murmur, rubs, gallop, clicks GI/Abdominal exam: Present: soft, tenderness (Moderate right-sided), normal bowel sounds. Absent: distended, guarding, rebound, rigid Back exam: Absent: CVA tenderness (R), CVA tenderness (L) Neurological exam: Present: alert, oriented X3 Skin exam: Present: warm, dry, intact, normal color. Absent: rash Course Vital Signs 03/19/20 03/19/20 03/19/20 13:04 14:09 15:09 Temperature 98.2 F Pulse Rate 66 70 Respiratory 18 20 20 Rate Blood Pressure 141/77 120/63 O2 Sat by Pulse 96 96 Oximetry Medical Decision Making - Medical Decision Making 49-year-old male presented for flank pain. Patient CT reveals evidence of a proximal ureteral 8 mm stone. Patient's pain is resolved after Toradol. Patient's labwork sent unremarkable patient does have gross hematuria no major signs of infection. Patient will follow-up with urology. Patient we discharged with pain control, antiemetics, Flomax. - Lab Data Result diagrams: 03/19/20 13:40 03/19/20 13:40 Lab Results 03/19/20 03/19/20 03/19/20 Range/Units 13:40 13:40 13:40 WBC 10.2 (3.8-10.6) k/uL RBC 5.33 (4.30-5.90) m/uL Hgb 15.4 (13.0-17.5) gm/dL Hct 48.6 (39.0-53.0) % MCV 91.2 (80.0-100.0) fL MCH 28.8 (25.0-35.0) pg MCHC 31.6 (31.0-37.0) g/dL RDW 13.3 (11.5-15.5) % Plt Count 182 (150-450) k/uL Neutrophils % 57 % Lymphocytes % 29 % Monocytes % 7 % Eosinophils % 4 % Basophils % 1 % Neutrophils # 5.8 (1.3-7.7) k/uL Lymphocytes # 3.0 (1.0-4.8) k/uL Monocytes # 0.7 (0-1.0) k/uL Eosinophils # 0.4 (0-0.7) k/uL Basophils # 0.1 (0-0.2) k/uL Sodium 134 L (137-145) mmol/L Potassium 4.5 (3.5-5.1) mmol/L Chloride 103 (98-107) mmol/L Carbon Dioxide 22 (22-30) mmol/L Anion Gap 9 mmol/L BUN 10 (9-20) mg/dL Creatinine 0.73 (0.66-1.25) mg/dL Est GFR (CKD-EPI)AfAm >90 (>60 ml/min/1.73 sqM) Est GFR (CKD-EPI)NonAf >90 (>60 ml/min/1.73 sqM) Glucose 125 H (74-99) mg/dL Plasma Lactic Acid [place] (0.7-2.0) mmol/L Calcium 9.2 (8.4-10.2) mg/dL Total Bilirubin 0.3 (0.2-1.3) mg/dL AST 52 (17-59) U/L ALT 56 H (4-49) U/L Alkaline Phosphatase 83 (38-126) U/L Total Protein 7.2 (6.3-8.2) g/dL Albumin 4.1 (3.5-5.0) g/dL Amylase 47 (30-110) U/L Lipase 188 (23-300) U/L Urine Color Red Urine Appearance Turbid (Clear) Urine pH 5.0 (5.0-8.0) Ur Specific [place] 1.022 (1.001-1.035) Urine Protein 1+ H (Negative) Urine Glucose (UA) 4+ H (Negative) Urine Ketones Negative (Negative) Urine Blood Large H (Negative) Urine Nitrite Negative (Negative) Urine Bilirubin Negative (Negative) Urine Urobilinogen <2.0 (<2.0) mg/dL Ur Leukocyte Esterase Negative (Negative) Urine RBC >182 H (0-5) /hpf Urine WBC 24 H (0-5) /hpf Urine Bacteria Occasional H (None) /hpf Hyaline Casts 12 H (0-2) /lpf Urine Mucus Many H (None) /hpf 03/19/20 Range/Units 13:40 WBC (3.8-10.6) k/uL RBC (4.30-5.90) m/uL Hgb (13.0-17.5) gm/dL Hct (39.0-53.0) % MCV (80.0-100.0) fL MCH (25.0-35.0) pg MCHC (31.0-37.0) g/dL RDW (11.5-15.5) % Plt Count (150-450) k/uL Neutrophils % % Lymphocytes % % Monocytes % % Eosinophils % % Basophils % % Neutrophils # (1.3-7.7) k/uL Lymphocytes # (1.0-4.8) k/uL Monocytes # (0-1.0) k/uL Eosinophils # (0-0.7) k/uL Basophils # (0-0.2) k/uL Sodium (137-145) mmol/L Potassium (3.5-5.1) mmol/L Chloride (98-107) mmol/L Carbon Dioxide (22-30) mmol/L Anion Gap mmol/L BUN (9-20) mg/dL Creatinine (0.66-1.25) mg/dL Est GFR (CKD-EPI)AfAm (>60 ml/min/1.73 sqM) Est GFR (CKD-EPI)NonAf (>60 ml/min/1.73 sqM) Glucose (74-99) mg/dL Plasma Lactic Acid Adonis 1.4 (0.7-2.0) mmol/L Calcium (8.4-10.2) mg/dL Total Bilirubin (0.2-1.3) mg/dL AST (17-59) U/L ALT (4-49) U/L Alkaline Phosphatase (38-126) U/L Total Protein (6.3-8.2) g/dL Albumin (3.5-5.0) g/dL Amylase (30-110) U/L Lipase (23-300) U/L Urine Color Urine Appearance (Clear) Urine pH (5.0-8.0) Ur Specific [place] (1.001-1.035) Urine Protein (Negative) Urine Glucose (UA) (Negative) Urine Ketones (Negative) Urine Blood (Negative) Urine Nitrite (Negative) Urine Bilirubin (Negative) Urine Urobilinogen (<2.0) mg/dL Ur Leukocyte Esterase (Negative) Urine RBC (0-5) /hpf Urine WBC (0-5) /hpf Urine Bacteria (None) /hpf Hyaline Casts (0-2) /lpf Urine Mucus (None) /hpf Disposition Clinical Impression: Right ureteral calculus Disposition: HOME SELF-CARE Condition: Stable Instructions (If sedation given, give patient instructions): Kidney Stones (ED) Additional Instructions: Please return to the Emergency Department if symptoms worsen or any other concerns. Prescriptions: Tamsulosin [Flomax] 0.4 mg PO DAILY #7 cap Ketorolac [Toradol] 10 mg PO Q8HR #15 tab Ondansetron Odt [Zofran Odt] 4 mg PO Q8HR PRN #10 tab PRN Reason: Nausea Is patient prescribed a controlled substance at d/c from ED?: No Referrals: Dajuan Hernandez MD [Primary Care Provider] - 1-2 days
[2020-03-19 13:59] LABS: Basophils # (A) 0.1 k/uL (0-0.2); Basophils % (A) 1 %; Eosinophils # (A) 0.4 k/uL (0-0.7); Eosinophils % (A) 4 %; HCT 48.6 % (39.0-53.0); HGB 15.4 gm/dL (13.0-17.5); Lymphocytes % (A) 29 %; MCH 28.8 pg (25.0-35.0); MCHC 31.6 g/dL (31.0-37.0); MCV 91.2 fL (80.0-100.0); Mean Platelet Volume 8.4; Monocytes # (A) 0.7 k/uL (0-1.0); Monocytes % (A) 7 %; Neutrophils # (A) 5.8 k/uL (1.3-7.7); Neutrophils % (A) 57 %; Platelet Count 182 k/uL (150-450); RBC 5.33 m/uL (4.30-5.90); RDW 13.3 % (11.5-15.5); WBC 10.2 k/uL (3.8-10.6)
[2020-03-19 14:12] LABS: ALT 56 U/L (4-49); AST 52 U/L (17-59); African American GFR (CKD) >90 (>60 ml/min/1.73 sqM); Albumin 4.1 g/dL (3.5-5.0); Alkaline Phosphatase 83 U/L (38-126); Amylase 47 U/L (30-110); Anion Gap 9 mmol/L; Blood Urea Nitrogen 10 mg/dL (9-20); Calcium 9.2 mg/dL (8.4-10.2); Carbon Dioxide 22 mmol/L (22-30); Chloride 103 mmol/L (98-107); Glucose 125 mg/dL (74-99); Non-African American GFR(CKD) >90 (>60 ml/min/1.73 sqM); Potassium 4.5 mmol/L (3.5-5.1); Sodium 134 mmol/L (137-145); Total Bilirubin 0.3 mg/dL (0.2-1.3); Total Protein 7.2 g/dL (6.3-8.2)
[2020-03-19 14:28] LABS: Appearance,Urine Turbid (Clear); Bacteria,Urine Occasional /hpf; Bilirubin,Urine Negative (Negative); Blood,Urine Large (Negative); Color,Urine Red; Glucose,Urine (UA) 4+ (Negative); Hyaline Casts,Urine 12 /lpf (0-2); Ketones,Urine Negative (Negative); Leukocyte Esterase,Urine Negative (Negative); Mucus,Urine Many /hpf; Nitrite,Urine Negative (Negative); Protein,Urine 1+ (Negative); RBC,Urine >182 /hpf (0-5); Specific Gravity,Urine 1.022 (1.001-1.035); Urobilinogen,Urine <2.0 mg/dL (<2.0); WBC,Urine 24 /hpf (0-5)
--- NOTE | 2020-03-19 15:27 | CT ---
EXAMINATION TYPE: CT abdomen pelvis wo con DATE OF EXAM: 03/19/2020 COMPARISON: KUB 12/17/2019 HISTORY: 49-year-old male Right sided pain CT DLP: 2432 mGycm Automated exposure control for dose reduction was used. TECHNIQUE: CT scanning of the abdomen and pelvis without contrast. Coronal and sagittal reconstructi ons performed. FINDINGS: Heart borderline in size. Some mosaic attenuation in the lower lungs suggests air trapping. Mild emph ysematous change also noted. No pleural effusion. Questionable subtle contour nodularity to liver. Liver enlarged measuring 19.0 cm. Dependent gallston es within the nondistended gallbladder. Stones measure up to 1.3 cm. Spleen is enlarged at 17.8 cm on axial imaging. Punctate calcifications consistent with old granuloma tous disease. There is mild right-sided hydronephrosis with a 8mm proximal right ureteral calculus. Slight asymmetr ic perinephric edema on the right. Noncontrast appearance of the left kidney, pancreas, and adrenal glands show no gross abnormality No dilated small bowel, free fluid, or free air. Mild stool burden. No pericolonic inflammatory conner e. Normal appendix. No mesenteric or retroperitoneal lymphadenopathy. Bladder incompletely distended. Central prostatic calcifications. No abnormal fluid collection in the pelvis or pelvic lymphadenopathy. Bones: No osseous destructive process. IMPRESSION: 1. 8mm proximal right ureteral calculus with mild obstructive uropathy. Mild perinephric stranding on the right is likely reactive to the obstruction. 2. Hepatosplenomegaly (liver 19.0 cm and spleen 17.8 cm). 3. There may be slight contour nodularity of the liver. Correlate for possible underlying cirrhosis. 4. Cholelithiasis and prior granulomatous disease.
[2020-03-19 15:37] VITALS: RESP 20
[2020-03-19 15:38] VITALS: BP 120/63; PULSE 70
[2020-03-19] MEDS ORDERED: ACET/COD 300 MG/30 MG STARTER PACK 6 TAB BTL PO STA (15:47)
== END 2020-03-19 16:04 | disposition home or self-care (01) ==
LOC: EC 12:50
DX: N20.1 Calculus of ureter (principal); J44.9 Chronic obstructive pulmonary disease, unspecified; E11.9 Type 2 diabetes mellitus without complications; E78.5 Hyperlipidemia, unspecified; F41.9 Anxiety disorder, unspecified; F32.9 Major depressive disorder, single episode, unspecified; F17.200 Nicotine dependence, unspecified, uncomplicated; Z79.51 Long term (current) use of inhaled steroids; Z79.84 Long term (current) use of oral hypoglycemic drugs; Z79.899 Other long term (current) drug therapy
CPT/HCPCS: 36415; 80053; 82150; 83605; 83690; 85025; 81001; 87086; 74176; 96374; 96375; 96361; 99284; J2405; J1885

== ENCOUNTER → 2020-03-24 | Outpatient (CLI) | payer OTHER ==
--- NOTE | 2020-03-24 10:43 | XR ---
EXAMINATION TYPE: XR KUB DATE OF EXAM: 03/24/2020 COMPARISON: 03/16/2020 HISTORY: Pain TECHNIQUE: One view abdominal series FINDINGS: The osseous structures are intact. The bowel gas pattern is nonspecific. Arthropathy of the hips. Th ere is a calcification right upper quadrant measuring 1.8 cm. Within the pelvis there is a calcificat ion which measures a diameter of 3.6 mm. IMPRESSION: 1. Nonspecific 1.8 cm right upper quadrant calcification. This appears to lie outside of the renal ou tline and may be related the gallbladder or bowel content. 2. Right hemipelvic calcification measuring a diameter of 3.6 cm could represent a right UVJ stone.
== END | disposition home or self-care (01) ==
LOC: RADXRMAIN 09:11
PROVIDERS: ATTEND Urology
DX: N20.1 Calculus of ureter (principal)
CPT/HCPCS: 74018

== ENCOUNTER → 2020-08-12 | Outpatient (CLI) | payer OTHER ==
[2020-08-12 16:46] LABS: Basophils # (A) 0.1 k/uL (0-0.2); Basophils % (A) 1 %; Eosinophils # (A) 0.5 k/uL (0-0.7); Eosinophils % (A) 5 %; HGB 16.6 gm/dL (13.0-17.5); Lymphocytes # (A) 2.9 k/uL (1.0-4.8); Lymphocytes % (A) 30 %; MCH 30.5 pg (25.0-35.0); MCHC 32.4 g/dL (31.0-37.0); MCV 93.9 fL (80.0-100.0); Mean Platelet Volume 7.9; Monocytes # (A) 0.6 k/uL (0-1.0); Monocytes % (A) 6 %; Neutrophils # (A) 5.4 k/uL (1.3-7.7); Neutrophils % (A) 57 %; Platelet Count 188 k/uL (150-450); RBC 5.43 m/uL (4.30-5.90); RDW 13.5 % (11.5-15.5); WBC 9.6 k/uL (3.8-10.6)
[2020-08-13 01:52] LABS: Hemoglobin A1C 6.1 % (4.0-6.0)
[2020-08-13 03:31] LABS: African American GFR (CKD) 123.3 (60.0-200.0); Albumin 4.5 g/dL (3.80-4.90); Albumin/Globulin Ratio 2.05 (1.60-3.17); Anion Gap 8.1 mmol/L (4.00-12.00); Calcium 9.7 mg/dL (8.7-10.3); Carbon Dioxide 24.9 mmol/L (21.6-31.8); Chol/HDL Ratio 4.48; Globulin 2.2 g/dL (1.6-3.3); LDL Cholesterol,Calculated 70.2 mg/dL (0.0-131.0); Non-African American GFR(CKD) 106.4 (60.0-200.0); Potassium 4.1 mmol/L (3.5-5.5); Total Bilirubin 0.3 mg/dL (0.3-1.2); Total Protein 6.7 g/dL (6.2-8.2); VLDL Calculation 44.8 mg/dL (5.00-40.00)
[2020-08-13 07:28] LABS: Urine Creatinine 108.4 mg/dL
== END | disposition home or self-care (01) ==
LOC: LABWHC1 15:35
PROVIDERS: ATTEND Internal Medicine
DX: E78.00 Pure hypercholesterolemia, unspecified (principal); E11.9 Type 2 diabetes mellitus without complications
CPT/HCPCS: 36415; 80053; 80061; 82043; 82570; 83036; 85025

== ENCOUNTER → 2021-01-06 | Outpatient (CLI) | payer OTHER ==
--- NOTE | 2021-01-06 15:03 | SFUN ---
SLEEP CENTER FOLLOW UP NOTE DATE OF SERVICE: 01/06/2021. A 50-year-old gentleman who has been followed in Sleep Center for treatment of obstructive sleep apnea-hypopnea syndrome. The patient has history of obstructive sleep apnea for about 12 years. He continues to use his CPAP equipment every night, but he wakes up from sleep with snoring. One year ago we tried to proceed with a split night, but the patient was not able to sleep without CPAP equipment and after 1-1/2 hours of recording, he left. Recording showed apnea-hypopnea index 43.4 at that time. [place] Sleepiness Scale today significantly increased to 16. MEDICATIONS: Metformin 1000 mg twice a day, Cymbalta 60 mg once a day, atorvastatin 20 mg once a day, Januvia 100 mg once a day, Jardiance 10 mg once a day, Symbicort twice a day. PHYSICAL EXAMINATION: GENERAL: Patient in no distress. VITAL SIGNS: BP 133/80, HR 93, RR 18, height 5 feet 8 inches, weight 309.8 pounds, body mass index 46.9, temperature 97.5, oxygen saturation at room air 96%. HEENT: PERRLA, EOMI. Oropharynx extremely low position of soft palate. Mallampati 4. Nose asymmetric, some restriction of nasal breathing. NECK: Supple, no JVD. Thyroid is not palpable. LUNGS: Clear to percussion and to auscultation. Good air exchange. No wheezing or rhonchi. HEART: S1, S2 regular. No murmurs, gallops, or rubs. ABDOMEN: Obese. EXTREMITIES: No clubbing or cyanosis. PAYROLL ADMINISTRATOR: Awake, alert, and oriented X3. Cranial nerves 2 to 7 intact. There is no fasciculation or atrophy. noted. No focal deficits observed. IMPRESSION: 1. Obstructive sleep apnea-hypopnea syndrome, most probably in severe range. The patient continued to use his CPAP equipment, but wakes up from sleep, has snoring while using his CPAP equipment. 2. Obesity. 3. Diabetes mellitus. 4. Hyperlipidemia. 5. Nasal septum deviation. PLAN: 1. We will get results of diagnostic sleep study, which was done 12 years ago in another institution. We tried to repeat diagnostic polysomnogram 1 year ago, but patient cannot sleep without CPAP equipment at all and that is why recording done for only 1-1/2 hours. Recording showed severe abnormalities of respiration. 2. Repeat CPAP titration for re-evaluation of effective CPAP pressure at the present time. 3. Patient will continue to use PAP equipment every night for the whole night. 4. Sleep hygiene with regular time in bed for at least 7-1/2 to 8 hours. 5. Precautions related to driving. No driving if feeling sleepiness. 6. I will maintain all necessary prescription for PAP supplies including mask, tube, filters. 7. Watching weight. 8. Follow-up visit after titration to discuss results of the study and following plans. Thank you very much for allowing me to participate in management of your patient. Sincerely, Sylvesetr Bynum MD, PhD, FAASM Diplomat of [place] [employer] [place] [employer] [facility] [place] ANGELES / NIRMAL: [id number] /
== END ==
LOC: SLEEP 11:44
PROVIDERS: ATTEND Internal Medicine
DX: E66.9 Obesity, unspecified (principal); Z68.42 Body mass index [BMI] 45.0-49.9, adult; E11.9 Type 2 diabetes mellitus without complications; E78.5 Hyperlipidemia, unspecified; J34.2 Deviated nasal septum

== ENCOUNTER 2021-04-16 18:34 | Emergency (ER) | payer OTHER ==
[2021-04-16 18:40] VITALS: RESP 20; TEMP 98.2
[2021-04-16] MEDS ORDERED: KETOROLAC 15 MG/ML 1 ML VIAL IM STA (19:06)
--- NOTE | 2021-04-16 19:08 | ED ---
Fall HPI - General Chief Complaint: Fall Stated Complaint: Fall/Pain all over body Time Seen by Provider: 04/16/21 19:00 Source: patient Mode of arrival: ambulatory - History of Present Illness Initial Comments: 50-year-old male presents to emergency department with a chief complaint of fall. He stated this occurred about one hour prior to arrival. Patient states he suffered a mechanical fall when he tripped over a flank on the ground and fell on the left side of his body. States most of the pain is located in the left-sided ribs. States the pain is worse whenever he is taking a deep breath but denies any shortness of breath. States the pain is sharp in nature in radiates slightly to the sternal region. He also reports pain in the anterior deltoid region. Denies any head injuries, back pain, blood thinners. - Related Data Home Medications Medication Instructions Recorded Confirmed DULoxetine HCL [Cymbalta] 60 mg PO DAILY 11/22/18 04/16/21 metFORMIN HCL 1,000 mg PO BID 11/22/18 04/16/21 Atorvastatin Calcium [Lipitor] 30 mg PO HS 12/17/19 04/16/21 Budesonide/Formoterol Fumarate 2 puff INHALATION RT-BID 12/17/19 04/16/21 [Symbicort 160-4.5 Mcg Inhaler] Empagliflozin [Jardiance] 10 mg PO DAILY 12/17/19 04/16/21 sitaGLIPtin [Januvia] 100 mg PO DAILY 12/17/19 04/16/21 Allergies Allergy/AdvReac Type Severity Reaction Status Date / Time No Known Allergies Allergy Verified 04/16/21 19:43 Review of Systems ROS Statement: Those systems with pertinent positive or pertinent negative responses have been documented in the HPI. ROS Other: All systems not noted in ROS Statement are negative. Past Medical History Past Medical History: Asthma, COPD, Diabetes Mellitus, Hyperlipidemia, Hypertension Additional Past Medical History / Comment(s): MONSTER, gland infection History of Any Multi-Drug Resistant Organisms: None Reported Past Surgical History: No Surgical Hx Reported Additional Past Surgical History / Comment(s): rectal abcess, fissure Past Psychological History: Anxiety, Depression Smoking Status: Current every day smoker Past Alcohol Use History: None Reported Past Drug Use History: None Reported General Exam Limitations: no limitations General appearance: alert, in no apparent distress, obese Head exam: Present: atraumatic, normocephalic, normal inspection. Absent: other (Negative Morillo sign, raccoon eyes, hemotympanum.) Eye exam: Present: normal appearance, PERRL, EOMI Pupils: Present: normal accommodation ENT exam: Present: normal exam, normal oropharynx, mucous membranes moist, TM's normal bilaterally, normal external ear exam Neck exam: Present: normal inspection, full ROM. Absent: tenderness, meningismus, lymphadenopathy Respiratory exam: Present: normal lung sounds bilaterally, chest wall tenderness (Chest wall tenderness over the left-sided ribs). Absent: respiratory distress, wheezes, rales, rhonchi, stridor Cardiovascular Exam: Present: regular rate, normal rhythm, normal heart sounds. Absent: systolic murmur GI/Abdominal exam: Present: soft. Absent: distended, tenderness, guarding, rebound, rigid Extremities exam: Present: normal inspection, full ROM, tenderness (Tenderness over the anterior deltoid), normal capillary refill, other (Palpable ulnar and radial pulses. Sensation intact in the left upper extremity.). Absent: pedal edema, joint swelling, calf tenderness Back exam: Present: normal inspection, full ROM. Absent: tenderness, CVA tenderness (R), CVA tenderness (L) Neurological exam: Present: alert, oriented X3, normal gait Psychiatric exam: Present: normal affect, normal mood Skin exam: Present: warm, dry, intact, normal color Course Vital Signs 04/16/21 04/16/21 18:38 20:17 Temperature 98.2 F Pulse Rate 136 H 108 H Respiratory 20 20 Rate Blood Pressure 158/86 150/78 O2 Sat by Pulse 95 99 Oximetry Medical Decision Making - Medical Decision Making 50-year-old male presents to emergency department with a chief complaint of fall. On physical examination, localized tenderness to the left-sided ribs with overlying come mild ecchymosis. Full range of motion of left shoulder and othe rwise neurovascularly intact in the left upper extremity. X-ray reveals a nondisplaced, acute fracture of the left eighth rib. Patient was given incentive spirometer. Toradol for pain. Tylenol 3 for symptomatically relief. Return primes were thoroughly discussed the patient is an attending agreeable. Case discussed with Dr. Paris Disposition Clinical Impression: Fall, Rib fracture Disposition: HOME SELF-CARE Condition: Stable Instructions (If sedation given, give patient instructions): Rib Fracture (ED), Fall Prevention (ED) Additional Instructions: Please return to the Emergency Department if symptoms worsen or any other concerns. Is patient prescribed a controlled substance at d/c from ED?: No Referrals: Dajuan Hernandez MD [Primary Care Provider] - 1-2 days Time of Disposition: 20:50
[2021-04-16 20:19] VITALS: BP 150/78; PULSE 108
--- NOTE | 2021-04-16 20:22 | XR ---
EXAMINATION TYPE: XR shoulder complete LT DATE OF EXAM: 04/16/2021 COMPARISON: NONE HISTORY: Pain TECHNIQUE: 3 views FINDINGS: I see no fracture nor dislocation. Joint spaces appear normal. There are no pathologic calc ifications. IMPRESSION: Negative left shoulder exam. No fracture.
--- NOTE | 2021-04-16 20:25 | XR ---
EXAMINATION TYPE: XR ribs LT w pa chest xray DATE OF EXAM: 04/16/2021 COMPARISON: NONE HISTORY: Pain TECHNIQUE: 5 views FINDINGS: Heart is normal. Lungs are clear of consolidation. There are no hilar masses. There is coar sening of the interstitial markings. Costophrenic angles are clear. Bony thorax is intact. There is n o pleural effusion or pneumothorax. There is slight deformity of the lateral left eighth rib. IMPRESSION: There is nondisplaced acute fracture lateral left eighth rib. Normal heart.
[2021-04-16] MEDS ORDERED: ACET/COD 300 MG/30 MG STARTER PACK 6 TAB BTL PO STA (20:49)
== END 2021-04-16 21:05 | disposition home or self-care (01) ==
LOC: EC 18:34
DX: S22.32XA Fracture of one rib, left side, initial encounter for closed fracture (principal); J44.9 Chronic obstructive pulmonary disease, unspecified; E11.9 Type 2 diabetes mellitus without complications; E78.5 Hyperlipidemia, unspecified; I10 Essential (primary) hypertension; F32.9 Major depressive disorder, single episode, unspecified; F17.200 Nicotine dependence, unspecified, uncomplicated; W01.0XXA Fall on same level from slipping, tripping and stumbling without subsequent striking against object, initial encounter; Z79.84 Long term (current) use of oral hypoglycemic drugs
CPT/HCPCS: 71101; 73030; 99283; 96372; J1885

== ENCOUNTER → 2021-05-05 | Outpatient (CLI) | payer OTHER ==
[2021-05-05 09:42] LABS: Appearance,Urine Clear (Clear); Bilirubin,Urine Negative (Negative); Blood,Urine Negative (Negative); Color,Urine Light Yellow; Glucose,Urine (UA) 3+ (Negative); Ketones,Urine Negative (Negative); Leukocyte Esterase,Urine Negative (Negative); Nitrite,Urine Negative (Negative); Protein,Urine Negative (Negative); Specific Gravity,Urine 1.011 (1.001-1.035); Urobilinogen,Urine <2.0 mg/dL (<2.0)
[2021-05-05 16:47] LABS: Basophils # (A) 0.09 X 10*3/uL (0.00-0.10); Eosinophils # (A) 0.26 X 10*3/uL (0.04-0.35); Eosinophils % (A) 2.9 %; HCT 48.6 % (39.6-50.0); HGB 15.2 g/dL (13.0-17.0); Lymphocytes # (A) 2.63 X 10*3/uL (0.90-5.00); Lymphocytes % (A) 29.7 %; MCH 27.7 pg (27.0-32.0); MCHC 31.3 g/dL (32.0-37.0); MCV 88.5 fL (80.0-97.0); Mean Platelet Volume 10.5 fL (9.5-12.2); Monocytes # (A) 0.69 X 10*3/uL (0.20-1.00); Monocytes % (A) 7.8 %; Neutrophils # (A) 5.15 X 10*3/uL (1.80-7.70); Neutrophils % (A) 58.1 %; Platelet Count 243 X 10*3/uL (140-440); RBC 5.49 X 10*6/uL (4.40-5.60); RDW 13.8 % (11.5-14.5); WBC 8.86 X 10*3/uL (4.50-10.00)
[2021-05-05 18:48] LABS: Hemoglobin A1C 5.5 % (4.0-6.0)
[2021-05-05 20:21] LABS: Urine Creatinine 53.8 mg/dL
[2021-05-05 23:32] LABS: African American GFR (CKD) 129.3 (60.0-200.0); Albumin 4.4 g/dL (3.80-4.90); Albumin/Globulin Ratio 1.83 (1.60-3.17); Anion Gap 10.3 mmol/L (4.00-12.00); BUN/Creat Ratio 12.86 Ratio (12.00-20.00); Carbon Dioxide 23.7 mmol/L (21.6-31.8); Chol/HDL Ratio 4.25; Globulin 2.4 g/dL (1.6-3.3); LDL Cholesterol,Calculated 76.2 mg/dL (0.0-131.0); Non-African American GFR(CKD) 111.6 (60.0-200.0); Potassium 4.2 mmol/L (3.5-5.5); Total Bilirubin 0.7 mg/dL (0.3-1.2); Total Protein 6.8 g/dL (6.2-8.2); VLDL Calculation 27.8 mg/dL (5.00-40.00)
== END | disposition home or self-care (01) ==
LOC: LABWHC1 08:51
PROVIDERS: ATTEND Internal Medicine
DX: E78.00 Pure hypercholesterolemia, unspecified (principal); E11.9 Type 2 diabetes mellitus without complications; F33.1 Major depressive disorder, recurrent, moderate
CPT/HCPCS: 36415; 80053; 80061; 81003; 82043; 82570; 83036; 85025

== ENCOUNTER → 2021-08-19 | Outpatient (CLI) | payer OTHER ==
--- NOTE | 2021-08-19 21:13 | SFUN ---
SLEEP CENTER FOLLOW UP NOTE DATE OF SERVICE: 08/19/2021 This 50-year-old gentleman has been followed in Sleep Center for treatment of obstructive sleep apnea-hypopnea syndrome. Recently the patient had a CPAP titration for severe obstructive sleep apnea-hypopnea syndrome. Previous sleep study showed apnea-hypopnea index 43.4 with oxygen desaturation to 80%. The patient received a new CPAP unit and is able to use it every night. He sleeps better with CPAP treatment, feels better during the day, but he still continues to feel sleepiness during the day. [place] Sleepiness Scale today is increased at 16. I checked his CPAP unit. This is a new [employer]Med type of CPAP unit. Pressure ranges from 10 to 14. Average usage is 7 hours 58 minutes per night for 100% of nights. Apnea- hypopnea index 0.4. Leak is 6.8 L/minute, which is in normal range. MEDICATIONS: Metformin, Cymbalta, atorvastatin, Januvia, Jardiance, Symbicort. PHYSICAL EXAMINATION: GENERAL: Pleasant patient in no distress. VITAL SIGNS: BP 152/82, HR 90, RR 16, weight 284.6, temperature 97.3, oxygen saturation at room air 97%. HEENT: PERRLA, EOMI, evaluation of oropharynx showed tongue protrudes midline. Extremely low position of soft palate; Mallampati IV. Nose asymmetry. Some restriction of nasal breathing. NECK: Supple, no JVD. Thyroid is not palpable. LUNGS: Clear to percussion and to auscultation. Good air exchange. No wheezing or rhonchi. HEART: S1, S2 regular. No murmurs, gallops, or rubs. ABDOMEN: Obese. EXTREMITIES: No clubbing or cyanosis. DIRECTOR OF PHYSICAL SECURITY: Awake, alert, and oriented X3. Cranial nerves 2 to 7 intact. There is no fasciculation or atrophy. noted. No focal deficits observed. IMPRESSION: 1. Obstructive sleep apnea-hypopnea syndrome. Patient demonstrated 100% compliance with treatment, benefitting from treatment. 2. Patient continues to feel sleepiness during the day while demonstrating good compliance with CPAP therapy. [place] Sleepiness Scale today increased to 16. Differential diagnosis should include possibility of additional diagnosis of idiopathic hypersomnia or narcolepsy. 3. Morbid obesity. 4. Diabetes mellitus. 5. Hyperlipidemia. 6. Nasal septum deviation. PLAN: 1. Multiple sleep latency test for objective evaluation of patient's symptoms of sleepiness during the day after the night on CPAP. 2. The patient should not keep water in the humidifier chamber. Chamber should be emptied in the morning and dry. He will put a new portion of distilled water in the evening. 3. Patient will continue to use PAP equipment every night for the whole night. 4. Sleep hygiene with regular time in bed for at least 7-1/2 to 8 hours. 5. Precautions related to driving. No driving if feeling sleepiness. 6. I will maintain all necessary prescription for PAP supplies including mask, tube, filters. 7. Watching weight. 8. Follow-up visit after MSLT to discuss results and following plan. Thank you very much for allowing me to participate in the management of your patient. Sincerely, Sylvester Bynum MD, PhD, FAASM Diplomat of [place] [employer] Sleep Medicine Board of [place] [employer] Head [facility] [facility] [employer] [place] MMMADHUL / BRAXTONN: [id number] /
== END ==
LOC: SLEEP 11:01
PROVIDERS: ATTEND Internal Medicine
DX: G47.33 Obstructive sleep apnea (adult) (pediatric) (principal); E66.01 Morbid (severe) obesity due to excess calories; E11.9 Type 2 diabetes mellitus without complications; E78.5 Hyperlipidemia, unspecified; J34.2 Deviated nasal septum; Z99.89 Dependence on other enabling machines and devices; Z79.84 Long term (current) use of oral hypoglycemic drugs; Z79.899 Other long term (current) drug therapy

== ENCOUNTER → 2021-11-05 | Outpatient (CLI) | payer OTHER | END | disposition home or self-care (01) | LOC: LABWHC1 12:01 | PROVIDERS: ATTEND Internal Medicine | DX: E11.9 Type 2 diabetes mellitus without complications (principal) | CPT/HCPCS: 36415; 83036 ==

== ENCOUNTER → 2022-09-02 | Outpatient (CLI) | payer OTHER ==
[2022-09-02 14:12] LABS: Basophils # (A) 0.09 X 10*3/uL (0.00-0.10); Eosinophils # (A) 0.55 X 10*3/uL (0.04-0.35); Eosinophils % (A) 6.2 %; HCT 45.4 % (39.6-50.0); HGB 14.7 g/dL (13.0-17.0); Immature Grans, Automated 0.3 %; Lymphocytes # (A) 2.62 X 10*3/uL (0.90-5.00); Lymphocytes % (A) 29.6 %; MCH 29.2 pg (27.0-32.0); MCHC 32.4 g/dL (32.0-37.0); MCV 90.1 fL (80.0-97.0); Mean Platelet Volume 10.3 fL (9.5-12.2); Monocytes # (A) 0.66 X 10*3/uL (0.20-1.00); Monocytes % (A) 7.4 %; NRBC Per 100 WBC 0 /100 WBCS (0.0-0.0); Neutrophils # (A) 4.91 X 10*3/uL (1.80-7.70); Neutrophils % (A) 55.5 %; Platelet Count 213 X 10*3/uL (140-440); RBC 5.04 X 10*6/uL (4.40-5.60); RDW 13.8 % (11.5-14.5); WBC 8.86 X 10*3/uL (4.50-10.00)
[2022-09-02 14:56] LABS: ALT 33 U/L (10-49); AST 22 U/L (14-35); African American GFR (CKD) 122.8 (60.0-200.0); Albumin 4.2 g/dL (3.8-4.9); Albumin/Globulin Ratio 1.77 (1.60-3.17); Alkaline Phosphatase 95 U/L (41-126); BUN/Creat Ratio 12.29 Ratio (12.00-20.00); Blood Urea Nitrogen 9.6 mg/dL (9.0-27.0); Calcium 9.5 mg/dL (8.7-10.3); Carbon Dioxide 22.9 mmol/L (20.0-27.5); Chloride 105 mmol/L (96-109); Chol/HDL Ratio 4.48 Ratio; Globulin 2.4 g/dL (1.6-3.3); Glucose 131 mg/dL (70-110); LDL Cholesterol,Calculated 92.7 mg/dL (0.0-131.0); Non-African American GFR(CKD) 105.9 (60.0-200.0); Potassium 4.4 mmol/L (3.5-5.5); Sodium 140 mmol/L (135-145); Total Protein 6.6 g/dL (6.2-8.2)
== END | disposition home or self-care (01) ==
LOC: LABWHC1 09:28
PROVIDERS: ATTEND Internal Medicine
DX: Z00.00 Encounter for general adult medical examination without abnormal findings (principal); Z12.5 Encounter for screening for malignant neoplasm of prostate; E11.9 Type 2 diabetes mellitus without complications; E78.00 Pure hypercholesterolemia, unspecified
CPT/HCPCS: 36415; 80053; 80061; 82043; 82570; 84153; 85025

== ENCOUNTER → 2022-11-04 | Outpatient (CLI) | payer OTHER ==
[2022-11-04 18:22] LABS: Basophils # (A) 0.12 X 10*3/uL (0.00-0.10); Basophils % (A) 1.2 %; Eosinophils # (A) 0.46 X 10*3/uL (0.04-0.35); Eosinophils % (A) 4.7 %; HCT 47.2 % (39.6-50.0); HGB 15.2 g/dL (13.0-17.0); Immature Grans, Automated 0.2 %; Lymphocytes # (A) 3.21 X 10*3/uL (0.90-5.00); Lymphocytes % (A) 33.1 %; MCH 29.6 pg (27.0-32.0); MCHC 32.2 g/dL (32.0-37.0); Mean Platelet Volume 10.7 fL (9.5-12.2); Monocytes # (A) 0.76 X 10*3/uL (0.20-1.00); Monocytes % (A) 7.8 %; NRBC Per 100 WBC 0 /100 WBCS (0.0-0.0); Neutrophils # (A) 5.14 X 10*3/uL (1.80-7.70); Platelet Count 234 X 10*3/uL (140-440); RBC 5.13 X 10*6/uL (4.40-5.60); RDW 13.6 % (11.5-14.5); WBC 9.71 X 10*3/uL (4.50-10.00)
[2022-11-04 18:44] LABS: African American GFR (CKD) 119.7 (60.0-200.0); Albumin 4.5 g/dL (3.8-4.9); Albumin/Globulin Ratio 1.78 (1.60-3.17); Anion Gap 10.9 mmol/L (10.00-18.00); BUN/Creat Ratio 10.6 Ratio (12.00-20.00); Blood Urea Nitrogen 8.7 mg/dL (9.0-27.0); Calcium 9.5 mg/dL (8.7-10.3); Carbon Dioxide 23.7 mmol/L (20.0-27.5); Globulin 2.5 g/dL (1.6-3.3); Non-African American GFR(CKD) 103.3 (60.0-200.0); Potassium 4.8 mmol/L (3.5-5.5); Total Bilirubin 0.4 mg/dL (0.30-1.20)
== END | disposition home or self-care (01) ==
LOC: LABWHC1 11:21
PROVIDERS: ATTEND Dermatology
DX: L20.89 Other atopic dermatitis (principal)
CPT/HCPCS: 36415; 80053; 85025

== ENCOUNTER → 2022-11-24 | Outpatient (CLI) | payer OTHER ==
[2022-11-24 23:56] LABS: Microalbumin Creatinine Ratio <30 mg/g Creat (0-30)
== END | disposition home or self-care (01) ==
LOC: LABWHC1 12:31
PROVIDERS: ATTEND Internal Medicine
DX: E11.9 Type 2 diabetes mellitus without complications (principal)
CPT/HCPCS: 36415; 82043; 82570; 83036

== ENCOUNTER → 2023-05-08 | Outpatient (CLI) | payer OTHER ==
[2023-05-08 15:59] LABS: Basophils # (A) 0.11 X 10*3/uL (0.00-0.10); Basophils % (A) 1.3 %; Eosinophils # (A) 0.39 X 10*3/uL (0.04-0.35); Eosinophils % (A) 4.6 %; HCT 44.3 % (39.6-50.0); HGB 14.1 d/dL (12.0-15.0); Lymphocytes # (A) 2.56 X 10*3/uL (0.90-5.00); Lymphocytes % (A) 30.3 %; MCH 28.7 pg (27.0-32.0); MCHC 31.8 d/dL (32.0-37.0); MCV 90.2 FL (80.0-97.0); Mean Platelet Volume 10.3 FL (9.5-12.2); Monocytes # (A) 0.77 X 10*3/uL (0.20-1.00); Monocytes % (A) 9.1 %; NRBC Per 100 WBC 0 X 10*3/uL (0.00-0.01); Neutrophils # (A) 4.56 X 10*3/uL (1.80-7.70); Neutrophils % (A) 54.1 %; Platelet Count 232 X 10*3/uL (140-440); RBC 4.91 X 10*6/uL (4.40-5.60); RDW 13.5 % (11.5-14.5); WBC 8.44 X 10*3/uL (4.50-10.00)
[2023-05-08 16:05] LABS: ALT 31 U/L (10-49); AST 23 U/L (14-35); Albumin/Globulin Ratio 1.67 Ratio (1.60-3.17); Alkaline Phosphatase 88 U/L (41-126); BUN/Creat Ratio 8.22 Ratio (12.00-20.00); Blood Urea Nitrogen 7.4 mg/dL (9.0-27.0); Calcium 9.2 mg/dL (8.7-10.3); Carbon Dioxide 21.6 mmol/L (21.6-31.8); Chloride 106 mmol/L (96-109); Chol/HDL Ratio 4.22 Ratio; Globulin 2.4 d/dL (1.6-3.3); Glucose 117 mg/dL (70-110); LDL Cholesterol,Calculated 81.3 mg/dL (0.0-131.0); Potassium 4.1 mmol/L (3.5-5.5); Sodium 141 mmol/L (135-145); Total Bilirubin 0.3 mg/dL (0.3-1.2); Total Protein 6.4 d/dL (6.2-8.2)
== END | disposition home or self-care (01) ==
LOC: LABWHC1 09:46
PROVIDERS: ATTEND Internal Medicine
DX: E11.9 Type 2 diabetes mellitus without complications (principal); E78.00 Pure hypercholesterolemia, unspecified; D69.6 Thrombocytopenia, unspecified
CPT/HCPCS: 36415; 80053; 80061; 85025

== ENCOUNTER → 2023-11-04 | Outpatient (CLI) | payer OTHER ==
[2023-11-04 23:02] LABS: Basophils # (A) 0.12 X 10*3/uL (0.00-0.10); Basophils % (A) 1.3 %; Eosinophils # (A) 0.27 X 10*3/uL (0.04-0.35); Eosinophils % (A) 2.9 %; HCT 46.7 % (39.6-50.0); HGB 15.4 g/dL (13.0-17.0); Lymphocytes # (A) 2.94 X 10*3/uL (0.90-5.00); Lymphocytes % (A) 31.5 %; MCH 29.6 pg (27.0-32.0); MCV 89.6 FL (80.0-97.0); Mean Platelet Volume 10.9 FL (9.5-12.2); Monocytes # (A) 0.73 X 10*3/uL (0.20-1.00); Monocytes % (A) 7.8 %; NRBC Per 100 WBC 0 X 10*3/uL (0.00-0.01); Neutrophils # (A) 5.25 X 10*3/uL (1.80-7.70); Neutrophils % (A) 56.2 %; Platelet Count 239 X 10*3/uL (140-440); RBC 5.21 X 10*6/uL (4.40-5.60); RDW 13.5 % (11.5-14.5); WBC 9.34 X 10*3/uL (4.50-10.00)
[2023-11-04 23:19] LABS: ALT 41 U/L (10-49); AST 31 U/L (14-35); Albumin 4.4 g/dL (3.8-4.9); Albumin/Globulin Ratio 1.63 Ratio (1.60-3.17); Alkaline Phosphatase 87 U/L (41-126); Blood Urea Nitrogen 9.4 mg/dL (9.0-27.0); Calcium 9.8 mg/dL (8.7-10.3); Carbon Dioxide 19.6 mmol/L (21.6-31.8); Chloride 102 mmol/L (96-109); Globulin 2.7 g/dL (1.6-3.3); Glucose 93 mg/dL (70-110); LDL Cholesterol,Calculated 65.5 mg/dL (0.0-131.0); Potassium 4.4 mmol/L (3.5-5.5); Prostate Specific Antigen 0.38 ng/mL (0.000-3.500); Sodium 138 mmol/L (135-145); Total Bilirubin 0.5 mg/dL (0.3-1.2); Total Protein 7.1 g/dL (6.2-8.2)
== END | disposition home or self-care (01) ==
LOC: LABWHC1 11:52
PROVIDERS: ATTEND Internal Medicine
DX: Z12.5 Encounter for screening for malignant neoplasm of prostate (principal); E11.9 Type 2 diabetes mellitus without complications
CPT/HCPCS: 36415; 80053; 80061; 82043; 82570; 83036; 84153; 85025

== ENCOUNTER → 2024-03-14 | Outpatient (CLI) | payer OTHER ==
[2024-03-14 14:39] LABS: Basophils # (A) 0.06 X 10*3/uL (0.00-0.10); Basophils % (A) 0.6 %; Eosinophils # (A) 0.17 X 10*3/uL (0.04-0.35); Eosinophils % (A) 1.7 %; HCT 44.8 % (39.6-50.0); HGB 14.7 g/dL (13.0-17.0); Lymphocytes # (A) 2.68 X 10*3/uL (0.90-5.00); Lymphocytes % (A) 26.4 %; MCH 29.4 pg (27.0-32.0); MCHC 32.8 g/dL (32.0-37.0); MCV 89.6 FL (80.0-97.0); Mean Platelet Volume 10.8 FL (9.5-12.2); Monocytes # (A) 0.71 X 10*3/uL (0.20-1.00); NRBC Per 100 WBC 0 X 10*3/uL (0.00-0.01); Neutrophils # (A) 6.51 X 10*3/uL (1.80-7.70); Neutrophils % (A) 63.9 %; Platelet Count 205 X 10*3/uL (140-440); WBC 10.17 X 10*3/uL (4.50-10.00)
[2024-03-14 15:09] LABS: ALT 31 U/L (10-49); AST 24 U/L (14-35); Albumin 4.4 g/dL (3.8-4.9); Albumin/Globulin Ratio 1.69 Ratio (1.60-3.17); Alkaline Phosphatase 87 U/L (41-126); BUN/Creat Ratio 11.67 Ratio (12.00-20.00); Blood Urea Nitrogen 10.5 mg/dL (9.0-27.0); Calcium 9.8 mg/dL (8.7-10.3); Carbon Dioxide 20.3 mmol/L (21.6-31.8); Chloride 104 mmol/L (96-109); Chol/HDL Ratio 3.33 Ratio; Globulin 2.6 g/dL (1.6-3.3); Glucose 97 mg/dL (70-110); LDL Cholesterol,Calculated 59.7 mg/dL (0.0-131.0); Potassium 4.2 mmol/L (3.5-5.5); Sodium 139 mmol/L (135-145); Total Bilirubin 0.6 mg/dL (0.3-1.2)
== END | disposition home or self-care (01) ==
LOC: LABWHC1 10:11
PROVIDERS: ATTEND Internal Medicine
DX: J45.909 Unspecified asthma, uncomplicated (principal); E11.9 Type 2 diabetes mellitus without complications; E78.00 Pure hypercholesterolemia, unspecified
CPT/HCPCS: 36415; 80053; 80061; 82043; 82570; 83036; 85025

== ENCOUNTER → 2024-05-03 | Outpatient (CLI) | payer OTHER ==
[2024-05-03 18:42] LABS: BUN/Creat Ratio 10.12 Ratio (12.00-20.00); Blood Urea Nitrogen 8.1 mg/dL (9.0-27.0); Calcium 9.4 mg/dL (8.7-10.3); Carbon Dioxide 23.1 mmol/L (21.6-31.8); Chloride 105 mmol/L (96-109); Glucose 76 mg/dL (70-110); Potassium 4.4 mmol/L (3.5-5.5); Sodium 143 mmol/L (135-145)
== END | disposition home or self-care (01) ==
LOC: LABWHC1 12:28
PROVIDERS: ATTEND Internal Medicine
DX: R79.89 Other specified abnormal findings of blood chemistry (principal)
CPT/HCPCS: 36415; 80048

== ENCOUNTER → 2024-10-24 | Outpatient (CLI) | payer OTHER ==
[2024-10-24 19:36] LABS: Basophils % (A) 0.9 %; Eosinophils # (A) 0.25 X 10*3/uL (0.04-0.35); Eosinophils % (A) 2.2 %; HCT 49.6 % (39.6-50.0); HGB 15.9 g/dL (13.0-17.0); Lymphocytes # (A) 3.75 X 10*3/uL (0.90-5.00); Lymphocytes % (A) 33.3 %; MCH 29.1 pg (27.0-32.0); MCHC 32.1 g/dL (32.0-37.0); MCV 90.7 FL (80.0-97.0); Mean Platelet Volume 10.8 FL (9.5-12.2); Monocytes # (A) 0.81 X 10*3/uL (0.20-1.00); Monocytes % (A) 7.2 %; NRBC Per 100 WBC 0 X 10*3/uL (0.00-0.01); Neutrophils # (A) 6.33 X 10*3/uL (1.80-7.70); Neutrophils % (A) 56.1 %; Platelet Count 251 X 10*3/uL (140-440); RBC 5.47 X 10*6/uL (4.40-5.60); RDW 14.1 % (11.5-14.5); WBC 11.27 X 10*3/uL (4.50-10.00)
[2024-10-25 02:50] LABS: Microalbumin Creatinine Ratio <4 mg/g Cr (0-30)
[2024-10-25 03:01] LABS: ALT 29 U/L (10-49); AST 24 U/L (14-35); Albumin 4.5 g/dL (3.8-4.9); Albumin/Globulin Ratio 1.61 Ratio (1.60-3.17); Alkaline Phosphatase 99 U/L (41-126); BUN/Creat Ratio 11.44 Ratio (12.00-20.00); Blood Urea Nitrogen 10.3 mg/dL (9.0-27.0); Calcium 9.9 mg/dL (8.7-10.3); Carbon Dioxide 23.2 mmol/L (21.6-31.8); Chloride 103 mmol/L (96-109); Chol/HDL Ratio 3.43 Ratio; Globulin 2.8 g/dL (1.6-3.3); Glucose 79 mg/dL (70-110); LDL Cholesterol,Calculated 81.4 mg/dL (0.0-131.0); Potassium 4.5 mmol/L (3.5-5.5); Prostate Specific Antigen 0.44 ng/mL (0.000-3.500); Sodium 139 mmol/L (135-145); Total Bilirubin 0.6 mg/dL (0.3-1.2); Total Protein 7.3 g/dL (6.2-8.2); VLDL Calculation 17.82 mg/dL (5.00-40.00)
== END | disposition home or self-care (01) ==
LOC: LABWHC1 15:56
PROVIDERS: ATTEND Internal Medicine
DX: Z12.5 Encounter for screening for malignant neoplasm of prostate (principal); E11.9 Type 2 diabetes mellitus without complications
CPT/HCPCS: 36415; 80053; 80061; 82043; 82570; 84153; 85025

== ENCOUNTER → 2025-02-18 | Outpatient (CLI) | payer OTHER ==
[2025-02-18 10:22] LABS: Basophils % (A) 1.1 %; Eosinophils % (A) 3.3 %; HCT 45.6 % (39.6-50.0); HGB 15.2 g/dL (13.0-17.0); Lymphocytes # (A) 2.82 X 10*3/uL (0.90-5.00); Lymphocytes % (A) 31.4 %; MCH 29.9 pg (27.0-32.0); MCHC 33.3 g/dL (32.0-37.0); MCV 89.8 FL (80.0-97.0); Mean Platelet Volume 10.4 FL (9.5-12.2); Monocytes # (A) 0.81 X 10*3/uL (0.20-1.00); NRBC Per 100 WBC 0 X 10*3/uL (0.00-0.01); Neutrophils # (A) 4.92 X 10*3/uL (1.80-7.70); Neutrophils % (A) 54.8 %; Platelet Count 213 X 10*3/uL (140-440); RBC 5.08 X 10*6/uL (4.40-5.60); RDW 13.6 % (11.5-14.5); WBC 8.99 X 10*3/uL (4.50-10.00)
[2025-02-18 15:21] LABS: ALT 33 U/L (10-49); AST 26 U/L (14-35); Albumin 4.2 g/dL (3.8-4.9); Albumin/Globulin Ratio 1.68 Ratio (1.60-3.17); Alkaline Phosphatase 91 U/L (41-126); BUN/Creat Ratio 13.78 Ratio (12.00-20.00); Blood Urea Nitrogen 12.4 mg/dL (9.0-27.0); Calcium 9.1 mg/dL (8.7-10.3); Carbon Dioxide 23.7 mmol/L (21.6-31.8); Chloride 106 mmol/L (96-109); Chol/HDL Ratio 3.65 Ratio; Globulin 2.5 g/dL (1.6-3.3); Glucose 98 mg/dL (70-110); LDL Cholesterol,Calculated 73.5 mg/dL (0.0-131.0); Sodium 140 mmol/L (135-145); Total Bilirubin 0.3 mg/dL (0.3-1.2); Total Protein 6.7 g/dL (6.2-8.2); VLDL Calculation 18.72 mg/dL (5.00-40.00)
== END | disposition home or self-care (01) ==
LOC: LABWHC1 08:04
PROVIDERS: ATTEND Internal Medicine
DX: E11.9 Type 2 diabetes mellitus without complications (principal); D69.6 Thrombocytopenia, unspecified
CPT/HCPCS: 36415; 80053; 80061; 83036; 85025